=== PATIENT | female | born 1950 | race Caucasian/White ===

== ENCOUNTER → 2019-09-16 12:52 | Outpatient (BNVA) | payer MEDICARE, SELFPAY | PROVIDERS: Family Provider Family Medicine; PCP Family Medicine; Visit Provider Internal Medicine Rheumatology | DX: M05.79 Rheumatoid arthritis with rheumatoid factor of multiple sites without organ or systems involvement (principal); Z79.899 Other long term (current) drug therapy; Z11.1 Encounter for screening for respiratory tuberculosis | CPT/HCPCS: 36415; 86480 ==

== ENCOUNTER → 2020-01-07 15:25 | Outpatient (BNVA) | payer MEDICARE, SELFPAY | PROVIDERS: Family Provider Family Medicine; PCP Family Medicine; Visit Provider Internal Medicine | DX: M06.9 Rheumatoid arthritis, unspecified (principal); Z79.899 Other long term (current) drug therapy | CPT/HCPCS: 36415; 80053; 85025; 85651; 86140; 99213 ==

== ENCOUNTER 2020-05-20 13:25 | Outpatient (CLI) | payer MEDICARE, SELFPAY ==
--- NOTE | 2020-05-20 15:33 | ONC CON_ITS ---
Dr. Lyons New Patient Note Patient: Zulay Cedillo Unit #: [id number]: 1950 Dicatated By: Aranza Lyons M.D.Date of Visit: May 20, 2020 Onc MED New Patient/Consult Referring Physician: Dr. Michaela Cagle M.D. History of Present Illness: Ms. 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 Subsequently patient was referred to Dr. Cagle, and on April 27, 2020 patient underwent right breast lumpectomy with right axillary lymph node dissection and final pathology report confirmed grade 3, poorly differentiated invasive ductal carcinoma with clear surgical margins and no lymphovascular invasion, invasive component was 3.3 x 3.1 x 2.8 cm, pT2. and 0 out of 22 lymph nodes showed metastatic disease. p N0. Port-A-Cath was placed in left chest wall in anticipation of adjuvant chemotherapy Chest x-ray done prior to lumpectomy was unremarkable echocardiogram done on April 21, 2020 showed no abnormality ejection fraction 53%. Patient denies smoking or alcohol use. Patient denies any bony pain but she has history of rheumatoid arthritis with bilateral hand deformities and her past medical history also significant for hypothyroidism, hypertension, type 2 diabetes mellitus, hyperlipidemia and atrial fibrillation for which she is on Eliquis Patient denies any fever chills denies any nausea or vomiting any diarrhea or constipation her right breast/axillary surgical scar with good healing. Past Medical History: Ms. Cedillo's medical history consists of anxiety, atrial fibrillation, depression, hyperlipidemia, hypertension, hypothyroidism, rheumatoid arthritis, and type II diabetes. Past Surgical History: Ms. Cedillo's surgical/procedural history consists of breast biopsy, hysterectomy/bilateral salpingectomy-oophorectomy, mastectomy - partial right, and tubal ligation. Medications: Eliquis 1 Tablet (of 5 mg) Oral b.i.d., Euthyrox 1 Tablet (of 100 mcg) Oral daily, Gabapentin 1 Capsule (of 100 mg) Oral daily, Lisinopril 1 Tablet (of 20 mg) Oral daily, Lovastatin 1 Tablet (of 20 mg) Oral daily, metFORMIN HCl 1 Tablet (of 500 mg) Oral b.i.d., Metoprolol Tartrate 1 Tablet (of 50 mg) Oral b.i.d., predniSONE 1 Tablet (of 5 mg) Oral daily, Rinvoq 1 Tablet (of 15 mg) Tablet SR 24 HR Oral daily, Sertraline HCl 1 Tablet (of 100 mg) Oral daily, traMADol HCl 1 Tablet (of 50 mg) Oral PRN Allergies: No Known Allergies. Social History: Ms. Cedillo is . Ms. Cedillo has never smoked. She has no history of drinking. Family History: Ms. Cedillo's mother at age 84. Ms. Cedillo's father at age 77. pt states she is unsure of the cause of her parents . Review Of Symptoms: Constitutional - Appetite is good and weight is stable. No fever, night sweats, or hot flashes. Energy level is fair, ENMT - Positive for sinus congestion/drainage. No mouth sores. No sore throat or difficulty swallowing, Hematologic/Lymphatic - Positive for easy bruising and bleeding, Respiratory - No shortness of breath. No cough. No pleuritic pain or hemoptysis, Cardiovascular - No angina pain. No palpitations, Gastrointestinal - No nausea or vomiting. No heartburn or acid reflux. No diarrhea or constipation. No blood in the stool or black stools, Genitourinary (F) - No dysuria or hematuria. No urinary frequency. No urgency or incontinence, Musculoskeletal - Positive for joint pain, Neurologic - No headache or dizziness. No numbness or tingling. No other focal neurologic symptoms, Psychiatric - No anxiety or depression. No insomnia. Vital Signs: Performed on May 20, 2020 14:31: 0, 35.41 (HIGH), 1.84 sq.m, 61.00 in, 96 %, 66 /min, 16 /min, 145/80 mm(hg) (HIGH), 97.9 F (LOW), and 187.4 lbs (HIGH). Performance Status: 0 - Fully active, able to carry on all predisease activities without restrictions. (ECOG) Physical Examination: ENMT - No mouth sores, no thrush, no jaundice, Respiratory - Lungs are clear to auscultation, Cardiovascular - Irregular rate and rhythm, Abdomen - Soft, bowel sounds present, Extremities - No visible edema, bilateral hand deformities due to rheumatoid arthritis. Lab/Imaging: Most recent lab results are not available for this patient. Impression: Poorly differentiated invasive ductal carcinoma grade 3, triple negative status post right lumpectomy and axillary dissection done on April 27, 2020, final pathology report confirmed grade 3, poorly differentiated invasive ductal carcinoma, ER negative IL negative HER-2/miles negative, invasive component 3.3 x 3.1 x 2.8 cm, with clear surgical margin, no lymphovascular invasion, pT2 0 out of 22 lymph nodes showed metastatic disease, pN 0 Stage IIb, (grade 3, triple negative T2 ,N0) Atrial fibrillation, on Eliquis Type 2 diabetes mellitus Rheumatoid arthritis with deformity of bilateral hands Hypothyroidism, status post thyroid surgery Hypertension Plan: Discussed with patient regarding her disease status and treatment options, patient has node negative, triple negative, poorly differentiated, grade 3, invasive ductal carcinoma involving right breast, status post lumpectomy with clear surgical margins, no lymphovascular involvement. Stage IIb disease. As per NCCN guidelines, patient is a candidate for adjuvant chemotherapy, considering her age and comorbid condition and ejection fraction around 53%, we would consider adjuvant chemotherapy with Cytoxan 60 mg/m??? and docetaxel 75 mg/m??? every 3 weeks x4 with Neulasta support to prevent chemotherapy-induced neutropenia/leukopenia and to maintain chemotherapy schedule once patient completed chemotherapy, will refer her to radiation oncology for postlumpectomy radiation therapy. All the side effects possible benefits associated with chemotherapy including but not limited to bone marrow suppression, nausea vomiting, hair loss, hyperglycemia especially with steroids were mentioned further teaching will done by chemotherapy nurse, will obtain approval from her insurance prior to the treatment, patient already has Port-A-Cath placed in her left chest wall. We will see her back 1 week after chemotherapy is initiated with CBC CMP. Signed By: Aranza Lyons M.D. <<Signature on File>>
== END 2020-05-20 13:26 | disposition home or self-care (01) ==
LOC: ONCMED 13:27
PROVIDERS: Family Provider Family Medicine; PCP Family Medicine; Visit Provider Internal Medicine Medical Oncology
DX: C50.911 Malignant neoplasm of unspecified site of right female breast (principal); Z17.1 Estrogen receptor negative status [ER-]; I48.91 Unspecified atrial fibrillation; Z79.01 Long term (current) use of anticoagulants; E11.9 Type 2 diabetes mellitus without complications; M06.9 Rheumatoid arthritis, unspecified; E03.9 Hypothyroidism, unspecified; I10 Essential (primary) hypertension
CPT/HCPCS: 99203

== ENCOUNTER 2020-06-02 10:35 | Outpatient (CLI) | payer MEDICARE, SELFPAY ==
[2020-06-02 12:59] LABS: Basophils % 0.7 %; Eosinophils # 0.1 10^3/uL (0.0-0.8); Eosinophils % 1.6 %; Hematocrit 43.7 % (37.0-47.0); Hemoglobin 13.9 g/dL (11.5-15.3); Lymphocytes # 1.9 10^3/uL (0.8-4.8); Lymphocytes % 33.5 %; Mean Corpuscular HGB Conc 31.8 g/dL (30.0-36.0); Mean Corpuscular Hemoglobin 30.5 pg (28.0-34.0); Mean Platelet Volume 11.5 fL (7.4-10.4); Monocytes # 0.6 10^3/uL (0.2-0.9); Monocytes % 10.6 %; Neutrophils # 3.03 10^3/uL (1.8-7.7); Neutrophils % 53.2 %; Nucleated Red Blood Cells % 0 %; Platelet Count 222 10^3/cmm (130-400); Red Blood Count 4.55 10^6/uL (4.1-5.3); Red Cell Distribution Width 13.2 % (12.1-15.1); White Blood Count 5.7 10^3/uL (4.0-10.0)
[2020-06-02 13:32] LABS: Alanine Aminotransferase 14 U/L (0-33); Albumin Level 4.1 g/dL (3.5-5.2); Alkaline Phosphatase 129 IU/L (35-105); Anion Gap 16.3 (5-19); Aspartate Amino Transferase 19 U/L (0-32); Blood Urea Nitrogen 12 mg/dL (8-23); Calcium 9.1 mg/dL (8.5-10.5); Carbon Dioxide 24 mmol/L (22-29); Chloride 103 mmol/L (98-107); Globulin 3.3 g/dL (1.3-4.6); Glomerular Filtration Rate 123.1 mL/min (90-130); Glucose 143 mg/dL (65-115); Osmolality Calculated 290 mOsm/kg (285-295); Potassium 4.3 mmol/L (3.5-5.1); Sodium 139 mmol/L (136-145); Total Bilirubin 0.3 mg/dL (0.15-1.2); Total Protein 7.4 g/dL (6.6-8.7)
== END 2020-06-02 10:36 | disposition home or self-care (01) ==
LOC: ONCMED 12:36
PROVIDERS: Internal Medicine Medical Oncology; Family Provider Family Medicine; PCP Family Medicine; Visit Provider Internal Medicine Hematology & Oncology
DX: C50.211 Malignant neoplasm of upper-inner quadrant of right female breast (principal); Z17.1 Estrogen receptor negative status [ER-]
CPT/HCPCS: 36415; 80053; 85025

== ENCOUNTER 2020-06-03 05:42 | Outpatient (CLI) | payer MEDICARE, SELFPAY ==
[2020-06-03] MEDS: famotidine 20 mg/2 mL INJ IVP (11:13)
[2020-06-03] MEDS: sodium chloride 0.9% 250 ML 999 ML IV (11:13)
[2020-06-03] MEDS: palonosetron 0.25 mg/5 mL SDV IV (11:17)
[2020-06-03] MEDS: sodium chloride 0.9% (100 ml) 100 ML 400 ML (11:40)
[2020-06-03] MEDS: diphenhydrAMINE 50 mg/mL SDV 1mL 25 MG IV (11:40)
[2020-06-03] MEDS: pegfilgrastim 6 mg/0.6 mL Kit (onpro) SUBCUT (14:30)
--- NOTE | 2020-06-07 09:21 | ONC FU_ITS ---
[facility] Patient Note Patient: Zulay Cedillo Unit #: [id number]: 1950 Dictated By: SHAHEEN Kenny-KELDate of Visit: Jun 03, 2020 Onc MED Follow-Up/Prog Note Chief Complaint: Right breast cancer History of Present Illness: Ms. Cedillo is a 69-year-old female with a history of abnormal mammogram. She underwent needle core biopsy of a right breast mass on April 08, 2020. The pathology showed poorly differentiated invasive ductal carcinoma, grade 3, prognostic profile???confirmed triple negative disease as ER/CA was 0% and HER-2/miles negative. Subsequently, Ms Cedillo was referred to Dr. Cagle. On April 27, 2020, Ms Cedillo underwent right breast lumpectomy with right axillary lymph node dissection. The final pathology report confirmed grade 3, poorly differentiated invasive ductal carcinoma with clear surgical margins and no lymphovascular invasion, invasive component was 3.3 x 3.1 x 2.8 cm, pT2. and 0 out of 22 lymph nodes showed metastatic disease. p N0. Port-A-Cath was placed in left chest wall in anticipation of adjuvant chemotherapy. Chest x-ray done prior to lumpectomy was unremarkable and an echocardiogram done on April 21, 2020 showed no abnormality and an ejection fraction 53%. Patient denies smoking or alcohol use. Patient denies any bony pain but she has history of rheumatoid arthritis with bilateral hand deformities and her past medical history also significant for hypothyroidism, hypertension, type 2 diabetes mellitus, hyperlipidemia and atrial fibrillation for which she is on Eliquis Ms Cedillo was referred to Dr Lyons for further recommendations for treatment of her breast cancer. She has been offered treatment with cyclophosphamide docetaxel with growth factor support. Ms Cedillo has node negative, triple negative, poorly differentiated, grade 3, invasive ductal carcinoma involving right breast, status post lumpectomy with clear surgical margins, no lymphovascular involvement. Stage IIb disease. As per NCCN guidelines, she is a candidate for adjuvant chemotherapy, considering her age and comorbid condition and ejection fraction around 53%, we would consider adjuvant chemotherapy with Cytoxan 60 mg/m??? and docetaxel 75 mg/m??? every 3 weeks x4 with Neulasta support. When she has completed the chemotherapy, she will be referred to radiation oncology for post lumpectomy radiation. Mrs. Cedillo is here today for follow-up. She is due for her first cycle of cyclophosphamide docetaxel. She states she did take her premeds. She states overall she feels good. She has no new concerns today. She feels her Port-A-Cath has healed well. Dr. Cagle did not start this. 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 She denies any fever or chills. She denies any known Covid exposure, symptoms or pending test. She denies any shortness of breath orthopnea. She denies chest pain, palpitations and lower extremity edema. She denies any nausea or vomiting. She denies any diarrhea or constipation. She states overall she feels pretty good but is anxious about the chemotherapy today. Her ECOG is 0. Past Medical History: Anxiety Atrial fibrillation Depression Hyperlipidemia Hypertension Hypothyroidism Rheumatoid arthritis Type II diabetes Past Surgical History: Breast biopsy Hysterectomy/bilateral salpingectomy-oophorectomy Mastectomy - partial right Tubal ligation Allergies: No Known Allergies. Medications: Eliquis 1 Tablet (of 5 mg) Oral b.i.d. Euthyrox 1 Tablet (of 100 mcg) Oral daily Gabapentin 1 Capsule (of 100 mg) Oral daily Lisinopril 1 Tablet (of 20 mg) Oral daily Lovastatin 1 Tablet (of 20 mg) Oral daily metFORMIN HCl 1 Tablet (of 500 mg) Oral b.i.d. Metoprolol Tartrate 1 Tablet (of 50 mg) Oral b.i.d. predniSONE 1 Tablet (of 5 mg) Oral daily Rinvoq 1 Tablet (of 15 mg) Tablet SR 24 HR Oral daily Sertraline HCl 1 Tablet (of 100 mg) Oral daily traMADol HCl 1 Tablet (of 50 mg) Oral PRN Family History: Ms. Cedillo's mother at age 84. Ms. Cedillo's father at age 77. pt states she is unsure of the cause of her parents . Social History: Ms. Cedillo is . Ms. Cedillo has never smoked. She has no history of drinking. Review Of Symptoms: Constitutional Denies fevers, chills, night sweats, excessive fatigue or weight loss. Allergic/Immunologic No reactions. Eyes Denies significant visual changes. No diplopia. No amaurosis. ENMT Denies changes in hearing, sore throat, mouth sores, difficulty or changes in swallowing ability, and/or sinus drainage. Hematologic/Lymphatic Denies easy bruising or bleeding. The patient denies any tender or palpable lymph nodes. Breasts no new concerns Respiratory Denies dyspnea on exertion, chest pain, cough or hemoptysis. Denies orthopnea. Cardiovascular Denies anginal chest pain, palpitations or orthopnea. Gastrointestinal Denies nausea, vomiting, diarrhea, GI bleeding, or constipation. Denies change in bowel habits and/or stool color, no heartburn or early satiety. Genitourinary (F) No hematuria, hesitancy, incontinence, vaginal bleeding, discharge or other problems with urination. Musculoskeletal Denies joint pain, swelling or redness. No decreased range of motion. Integumentary Denies chronic rashes, inflammation, ulcerations or skin changes. Neurologic Denies headache, blurred vision, and no areas of focal weakness or numbness. Normal gait. No sensory problems. Psychiatric Denies insomnia, depression, geoffrey or mood swings. Vital Signs: Performed on Jun 03, 2020 09:47 Height - 61.00 in Weight - 190.2 lbs (HIGH) BSA - 1.85 sq.m BMI - 35.94 (HIGH) Temperature - 98.2 F (LOW) Pulse - 89 /min Respiration - 20 /min BP - 163/89 mm(hg) (HIGH) O2 Sat - 95 % (LOW) Pain - 0,0 - Fully active, able to carry on all predisease activities without restrictions. (ECOG) Physical Examination: Constitutional Alert, oriented, no acute distress. Skin pink, warm and dry. Head Normocephalic; atraumatic. Eyes Conjunctivae and sclerae are clear and without icterus. Pupils are reactive and equal. Neck Supple without masses or thyromegaly. No jugular venous distension. Hematologic/Lymphatic No petechiae or purpura. No tender or palpable lymph nodes in the cervical or supraclavicular areas. Respiratory Lungs are clear to auscultation without rhonchi or wheezing. Cardiovascular Regular rate and rhythm of heart without murmurs,clicks, gallops or rubs. Chest Chest is symmetric without chest wall deformities. Left port site has healed well. Breasts Abdomen Non-tender, non-distended, no masses or ascites. Good bowel sounds noted in all quads. No guarding or rebound tenderness. No pulsatile masses. Back/Spine Non-tender to palpation. Extremities No visible deformities, no cyanosis, clubbing or edema. Musculoskeletal No tenderness or swelling, normal range of motion without obvious weakness. Integumentary No rashes or lesions. Neurologic No sensory or motor deficits, normal cerebellar function, normal gait. Psychiatric Alert and oriented times three. Coherent speech. Verbalizes understanding of our discussions today. Laboratory:Test performed on Jun 02, 2020 10:35 Sodium 139 mmol/L Potassium 4.3 mmol/L Chloride 103 mmol/L CO2 24 mmol/L Anion Gap 16.3 BUN 12 mg/dL Creatinine 0.5 mg/dL Cr Clearance (Est) 146.5100 mL/min eGFR 123.1 mL/min Glucose 143 mg/dL Osmolality - Calculated 290 mOsm/kg Calcium 9.1 mg/dL Protein, Total 7.4 g/dL Albumin 4.1 g/dL Globulin 3.3 g/dL Bilirubin, Total 0.3 mg/dL ALT (SGPT) 14 U/L AST (SGOT) 19 U/L Alkaline Phosphatase 129 IU/L WBC 5.7 10 3/uL RBC 4.55 10 6/uL HGB 13.9 g/dL HCT 43.7 % MCV 96.0 fL MCH 30.5 pg MCHC 31.8 g/dL RDW 13.2 % Platelet Count 222 10 3/cmm MPV 11.5 fL Neutrophils 3.03 10 3/uL Lymphocytes 1.9 10 3/uL Monocytes 0.6 10 3/uL Eosinophils 0.1 10 3/uL Basophils 0.0 10 3/uL Neutrophil % 53.2 % Lymphocyte % 33.5 % Monocyte % 10.6 % Eosinophil % 1.6 % Basophils % 0.7 % NRBC % 0 % Impression: Poorly differentiated invasive ductal carcinoma grade 3, triple negative status post right lumpectomy and axillary dissection done on April 27, 2020, final pathology report confirmed grade 3, poorly differentiated invasive ductal carcinoma, ER negative CA negative HER-2/miles negative, invasive component 3.3 x 3.1 x 2.8 cm, with clear surgical margin, no lymphovascular invasion, pT2 0 out of 22 lymph nodes showed metastatic disease, pN 0 Stage IIb, (grade 3, triple negative T2 ,N0) Atrial fibrillation, on Eliquis Type 2 diabetes mellitus Rheumatoid arthritis with deformity of bilateral hands Hypothyroidism, status post thyroid surgery Hypertension Dr. Lyosn has offered Mrs. Cedillo adjuvant chemotherapy with cyclophosphamide docetaxel. She also had Neulasta support to prevent chemotherapy-induced neutropenia. She will start her first cycle today. We will plan for 4 cycles of the cyclophosphamide docetaxel. When she completes the adjuvant chemotherapy she will be referred to radiation oncology for postlumpectomy radiation. Plan: 1. Proceed with cycle 1 day 1 cyclophosphamide docetaxel. 2. Steroid compliance confirmed. 3. Aggressive antiemetics due to high risk regimen. 4. Labs from 06/02/2020 were reviewed in detail and discussed with Mrs. Cedillo and a copy was given to her. WBC 5.7, hemoglobin 13.9 platelets 222,000, ANC is 3000 potassium 4.3 creatinine 0.5 LFTs are normal alk phos is 129. 5. Mrs. Cedillo will have interim CBC. This may be drawn at [facility] through her port or venipuncture whichever she prefers. 6. We will plan to see her back here in 3 weeks with CBC CMP for consideration of cycle 2 chemotherapy. 7. Mrs. Cedillo was instructed to contact us in interim should questions or problems arise. 8. The patient was informed of chemotherapy plan and specific drugs were discussed. We also discussed how chemotherapy works and identified common side effects including alopecia; myelosuppression-including neutropenia, anemia, thrombocytopenia; peripheral neuropathy; fatigue; nausea; diarrhea; constipation; bleeding or bruising; skin changes; mouth sores; drug hypersensitivity/allergic reactions or anaphylaxis and extravasation. They have also been informed how to contact the clinic with side effects or symptoms, including but not limited to fever greater than 100.4???, chills, sore throat, bleeding or bruising that is not explained or mouth sores, cough, nasal discharge, diarrhea, constipation, nausea and/or vomiting not relieved with medications on hand at home, as well as any other concern or question they may have. Our hours are 8:00 a.m. to 4:30 p.m. on Sunday through and 8-12:00 on Sunday. However, someone is instrument/control technician 24 hours per day and they have been advised to contact the [facility] at if it is after hours. We have also discussed potential long-term side effects of chemotherapy including secondary cancers, infertility, pulmonary complications, cardiac complications, and again peripheral neuropathy. We have discussed that they certainly need to let us know before taking any antioxidants or herbal or further dietary supplements, as we are unsure of how these agents react with chemotherapy and we request that they avoid these products for now. They were informed that it is okay to take multivitamins at normal doses. They verbally state that they understand to take all medications as directed by their healthcare provider unless otherwise indicated. They also verbalized understanding to leave the pressure dressing on the intravenous administration site for at least two hours after treatment. Instructions for oral care with baking soda and salt water rinses as well as a guide for use of [id number] medication were provided with the treatment plan. They have been given a written patient treatment plan, of which a copy is in the chart, as well as specific drug information. They have no questions and verbalized understanding and are willing to proceed with chemotherapy at this time. The majority of this visit (greater than 45 minutes) was spent in face to face communication with this patient in regards to the plan of care, side effect identification and management. Signed By: JAK Kenny, DEN Lyons M.D. <<Signature on File>>
== END 2020-06-03 05:43 | disposition home or self-care (01) ==
PROVIDERS: Family Provider Family Medicine; PCP Family Medicine; Visit Provider Nurse Practitioner
DX: Z51.12 Encounter for antineoplastic immunotherapy (principal); Z51.11 Encounter for antineoplastic chemotherapy; C50.211 Malignant neoplasm of upper-inner quadrant of right female breast; Z17.1 Estrogen receptor negative status [ER-]; I48.91 Unspecified atrial fibrillation; E11.9 Type 2 diabetes mellitus without complications; M06.9 Rheumatoid arthritis, unspecified; M21.832 Other specified acquired deformities of left forearm; M21.831 Other specified acquired deformities of right forearm; E03.9 Hypothyroidism, unspecified; I10 Essential (primary) hypertension; Z79.01 Long term (current) use of anticoagulants
CPT/HCPCS: 96367; 96372; 96375; 96413; 96417; 99215; J1100; J1200; J2469; J2505; J3490; J7040; J7050; J9070; J9171

== ENCOUNTER 2020-06-24 10:22 | Outpatient (CLI) | payer MEDICARE, SELFPAY ==
[2020-06-24] MEDS: sodium chloride 0.9% 250 ML 75 ML IV (11:30)
[2020-06-24] MEDS: famotidine 20 mg/2 mL INJ IVP (11:30)
[2020-06-24] MEDS: diphenhydrAMINE 50 mg/mL SDV 1mL 25 MG IV (11:35)
[2020-06-24] MEDS: palonosetron 0.25 mg/5 mL SDV IV (11:41)
[2020-06-24 12:06] LABS: Alanine Aminotransferase 13 U/L (0-33); Albumin Level 4.1 g/dL (3.5-5.2); Alkaline Phosphatase 148 IU/L (35-105); Anion Gap 15.3 (5-19); Aspartate Amino Transferase 14 U/L (0-32); Blood Urea Nitrogen 12 mg/dL (8-23); Calcium 9.2 mg/dL (8.5-10.5); Carbon Dioxide 25 mmol/L (22-29); Chloride 99 mmol/L (98-107); Globulin 3.1 g/dL (1.3-4.6); Glomerular Filtration Rate 123.1 mL/min (90-130); Glucose 248 mg/dL (65-115); Osmolality Calculated 288 mOsm/kg (285-295); Potassium 4.3 mmol/L (3.5-5.1); Sodium 135 mmol/L (136-145); Total Bilirubin 0.4 mg/dL (0.15-1.2); Total Protein 7.2 g/dL (6.6-8.7)
[2020-06-24] MEDS: pegfilgrastim 6 mg/0.6 mL Kit (onpro) SUBCUT (14:15)
--- NOTE | 2020-06-28 21:26 | ONC FU_ITS ---
[facility] Patient Note Patient: Zulay Cedillo Unit #: [id number]: 1950 Dictated By: Kathy KennyDate of Visit: Jun 24, 2020 Onc MED Follow-Up/Prog Note Chief Complaint: Right breast cancer History of Present Illness: Ms. Cedillo is a 69-year-old female with a history of abnormal mammogram. She underwent needle core biopsy of a right breast mass on April 08, 2020. The pathology showed poorly differentiated invasive ductal carcinoma, grade 3, prognostic profile???confirmed triple negative disease as ER/ND was 0% and HER-2/miles negative. Subsequently, Ms Cedillo was referred to Dr. Cagle. On April 27, 2020, Ms Cedillo underwent right breast lumpectomy with right axillary lymph node dissection. The final pathology report confirmed grade 3, poorly differentiated invasive ductal carcinoma with clear surgical margins and no lymphovascular invasion, invasive component was 3.3 x 3.1 x 2.8 cm, pT2. and 0 out of 22 lymph nodes showed metastatic disease. p N0. Port-A-Cath was placed in left chest wall in anticipation of adjuvant chemotherapy. Chest x-ray done prior to lumpectomy was unremarkable and an echocardiogram done on April 21, 2020 showed no abnormality and an ejection fraction 53%. Patient denies smoking or alcohol use. Patient denies any bony pain but she has history of rheumatoid arthritis with bilateral hand deformities and her past medical history also significant for hypothyroidism, hypertension, type 2 diabetes mellitus, hyperlipidemia and atrial fibrillation for which she is on Eliquis Ms Cedillo was referred to Dr Lyons for further recommendations for treatment of her breast cancer. She has been offered treatment with cyclophosphamide docetaxel with growth factor support. Ms Cedillo has node negative, triple negative, poorly differentiated, grade 3, invasive ductal carcinoma involving right breast, status post lumpectomy with clear surgical margins, no lymphovascular involvement. Stage IIb disease. As per NCCN guidelines, she is a candidate for adjuvant chemotherapy, considering her age and comorbid condition and ejection fraction around 53%, we would consider adjuvant chemotherapy with Cytoxan 60 mg/m??? and docetaxel 75 mg/m??? every 3 weeks x 4 with Neulasta support. When she has completed the chemotherapy, she will be referred to radiation oncology for post lumpectomy radiation. Mrs. Cedillo is here today for follow-up. She is due for her cycle 2 of cyclophosphamide docetaxel. She states overall she is doing pretty good . She did have significant neutropenia with ANC of 200 on day 8 despite growth factor support with Neulasta on pro. Her counts have adequately recovered today to an ANC of 5500. She denies any fever or chills. She did take prophylactic antibiotics and tolerated this well. She denies any nausea or vomiting. She states she does have fatigue with activity but recovers well with rest. She states her fatigue has improved at this point. She denies any diarrhea or constipation. She denies any neuropathy. She states her mouth is felt a little rough in the palate area but she denies any actual oral lesions. She denies any trouble swallowing. She states she had a little nausea but that went away with nausea meds at home. She denies any vomiting. She denies any urinary symptoms. Her ECOG is 1. Past Medical History: Anxiety Atrial fibrillation Depression Hyperlipidemia Hypertension Hypothyroidism Rheumatoid arthritis Type II diabetes Past Surgical History: Breast biopsy Hysterectomy/bilateral salpingectomy-oophorectomy Mastectomy - partial right Tubal ligation Allergies: No Known Allergies. Medications: Eliquis 1 Tablet (of 5 mg) Oral b.i.d. Euthyrox 1 Tablet (of 100 mcg) Oral daily Gabapentin 1 Capsule (of 100 mg) Oral daily Lisinopril 1 Tablet (of 20 mg) Oral daily Lovastatin 1 Tablet (of 20 mg) Oral daily metFORMIN HCl 1 Tablet (of 500 mg) Oral b.i.d. Metoprolol Tartrate 1 Tablet (of 50 mg) Oral b.i.d. predniSONE 1 Tablet (of 5 mg) Oral daily Rinvoq 1 Tablet (of 15 mg) Tablet SR 24 HR Oral daily Sertraline HCl 1 Tablet (of 100 mg) Oral daily traMADol HCl 1 Tablet (of 50 mg) Oral PRN Family History: Ms. Cedillo's mother at age 84. Ms. Cedillo's father at age 77. pt states she is unsure of the cause of her parents . Social History: Ms. Cedillo is . Ms. Cedillo has never smoked. She has no history of drinking. Review Of Symptoms: Constitutional Denies fevers, chills, night sweats, excessive fatigue or weight loss. She states she gets tired with activity. Allergic/Immunologic No reactions. Eyes Denies significant visual changes. No diplopia. No amaurosis. ENMT Denies changes in hearing, sore throat, mouth sores, difficulty or changes in swallowing ability, and/or sinus drainage. She states her mouth has been a little tender in the roof of her mouth. Hematologic/Lymphatic Denies easy bruising or bleeding. The patient denies any tender or palpable lymph nodes. Respiratory Denies dyspnea on exertion, chest pain, cough or hemoptysis. Denies orthopnea. Cardiovascular Denies anginal chest pain, palpitations or orthopnea. Gastrointestinal Denies nausea, vomiting, diarrhea, GI bleeding, or constipation. Denies change in bowel habits and/or stool color, no heartburn or early satiety. Genitourinary (F) No hematuria, hesitancy, incontinence, vaginal bleeding, discharge or other problems with urination. Musculoskeletal Denies joint pain, swelling or redness. No decreased range of motion. Integumentary Denies chronic rashes, inflammation, ulcerations or skin changes. Neurologic Denies headache, blurred vision, and no areas of focal weakness or numbness. Normal gait. No sensory problems. Psychiatric Denies insomnia, depression, geoffrey or mood swings. Vital Signs: Performed on Jun 24, 2020 14:15 Height - 61.00 in Temperature - 97.4 F (LOW) Pulse - 91 /min Respiration - 18 /min BP - 128/78 mm(hg) O2 Sat - 96 % Pain - 0 Fatigue - 0 Performed on Jun 24, 2020 10:56 Height - 61.00 in Weight - 187.2 lbs (LOW) BSA - 1.84 sq.m BMI - 35.37 (HIGH) Temperature - 98.5 F Pulse - 80 /min Respiration - 20 /min BP - 134/86 mm(hg) O2 Sat - 95 % (LOW) Pain - 2 Fatigue - 0,1 - No physically strenuous activity, but ambulatory and able to carry out light or sedentary work (e.g. office work, light house work). (ECOG) Physical Examination: Constitutional Alert, oriented, no acute distress. Skin pink, warm and dry. Head Normocephalic; atraumatic. Eyes Conjunctivae and sclerae are clear and without icterus. Pupils are reactive and equal. ENMT Her palate shows irritation but no actual lesions. She is encouraged to use baking soda salt water rinses. Neck Supple without masses or thyromegaly. No jugular venous distension. Hematologic/Lymphatic No petechiae or purpura. No tender or palpable lymph nodes in the cervical or supraclavicular areas. Respiratory Lungs are clear to auscultation without rhonchi or wheezing. Cardiovascular Regular rate and rhythm of heart without murmurs,clicks, gallops or rubs. Chest Chest is symmetric without chest wall deformities. Left port site has healed well. Abdomen Non-tender, non-distended, no masses or ascites. Good bowel sounds noted in all quads. No guarding or rebound tenderness. No pulsatile masses. Back/Spine Non-tender to palpation. Extremities No visible deformities, no cyanosis, clubbing or edema. Musculoskeletal No tenderness or swelling, normal range of motion without obvious weakness. Integumentary No rashes or lesions. Neurologic No sensory or motor deficits, normal cerebellar function, normal gait. Psychiatric Alert and oriented times three. Coherent speech. Verbalizes understanding of our discussions today. Laboratory:Test performed on Jun 24, 2020 11:20 Sodium 135 mmol/L Potassium 4.3 mmol/L Chloride 99 mmol/L CO2 25 mmol/L Anion Gap 15.3 BUN 12 mg/dL Creatinine 0.5 mg/dL Cr Clearance (Est) 146.5100 mL/min eGFR 123.1 mL/min Glucose 248 mg/dL Osmolality - Calculated 288 mOsm/kg Calcium 9.2 mg/dL Protein, Total 7.2 g/dL Albumin 4.1 g/dL Globulin 3.1 g/dL Bilirubin, Total 0.4 mg/dL ALT (SGPT) 13 U/L AST (SGOT) 14 U/L Alkaline Phosphatase 148 IU/L Test performed on Jun 24, 2020 10:42 WBC 7.7 10^9/L RBC 4.16 10^12/L HGB 12.8 g/dL HCT 38.9 % MCV 93.5 fl MCH 30.8 pg MCHC 33 g/dL RDW 13.9 % Platelet Count 391 10^9/L MPV 9.8 fL Neutrophils (Gran) 5.5 10^9/L Lymphocytes 1.5 10^9/L Monocytes 0.6 10^9/L Eosinophils 0.0 10^9/L Basophils 0.1 10^9/L Manual Lymphocytes 19.4 % Manual Monocytes 8.3 % Manual Eosinophils 0.3 % Manual Basophils 0.7 % Test performed on Jun 02, 2020 10:35 Neutrophil % 53.2 % Lymphocyte % 33.5 % Monocyte % 10.6 % Eosinophil % 1.6 % Basophils % 0.7 % NRBC % 0 % Impression: Poorly differentiated invasive ductal carcinoma grade 3, triple negative status post right lumpectomy and axillary dissection done on April 27, 2020, final pathology report confirmed grade 3, poorly differentiated invasive ductal carcinoma, ER negative ND negative HER-2/miles negative, invasive component 3.3 x 3.1 x 2.8 cm, with clear surgical margin, no lymphovascular invasion, pT2 0 out of 22 lymph nodes showed metastatic disease, pN 0 Stage IIb, (grade 3, triple negative T2 ,N0) Atrial fibrillation, on Eliquis Type 2 diabetes mellitus Rheumatoid arthritis with deformity of bilateral hands Hypothyroidism, status post thyroid surgery Hypertension Dr. Lyons has offered Mrs. Cedillo adjuvant chemotherapy with cyclophosphamide docetaxel. She also had Neulasta support to prevent chemotherapy-induced neutropenia. She started her first cycle on 06/03/2020. We will plan for 4 cycles of the cyclophosphamide docetaxel. When she completes the adjuvant chemotherapy she will be referred to radiation oncology for postlumpectomy radiation. Plan: PROBLEMS ADDRESSED TODAY A. STAGE IIB TRIPLE NEGATIVE POORLY DIFFERENTIATED INVASIVE DUCTAL CARCINOMA 1. Proceed with cycle 2 day 1 cyclophosphamide docetaxel. 2. Steroid compliance confirmed. 3. Aggressive antiemetics due to high risk regimen. 4. Labs from 06/24/2020 were reviewed in detail and discussed with Mrs. Cedillo and a copy was given to her. WBC 7.7, hemoglobin 12.8, platelets 391,000 ANC is 5500. Potassium 4.3 random glucose 248 steroid-induced creatinine 0.5 LFTs are normal alk phos is 148 presumably due to Neulasta on pro injection. 5. Mrs. Cedillo will have interim CBC. This may be drawn at [facility] through her port or venipuncture whichever she prefers. B. MOUTH IRRITATION RELATED TO CHEMOTHERAPY 1. Baking soda/salt water rinses up to 4 times daily as needed. 2. She is encouraged to contact us in interim if actual sores arise that we could start her with famciclovir or equivalent. C. FOLLOWUP PLAN 1. We will plan to see her back here in 3 weeks with CBC CMP for consideration of cycle 3 chemotherapy. 2. Mrs. Cedillo was instructed to contact us in interim should questions or problems arise. Addendum: Mrs. Cedillo is had significant activity induced fatigue and has had severe neutropenia after cycle 1. Due to the fatigue and the neutropenia she may not be able to work consistently and will just depend on her tolerance. Her neutropenia has resolved presently but is expected that will recur after each chemotherapy treatment. Signed By: Kathy Kenny-, AOCNP Aranza Lyons MD <<Signature on File>>
== END 2020-06-24 10:23 | disposition home or self-care (01) ==
LOC: ONCMED 10:25
PROVIDERS: PCP Family Medicine; Visit Provider Nurse Practitioner
DX: Z51.11 Encounter for antineoplastic chemotherapy (principal); C50.211 Malignant neoplasm of upper-inner quadrant of right female breast; Z17.1 Estrogen receptor negative status [ER-]; D70.1 Agranulocytosis secondary to cancer chemotherapy; T45.1X5A Adverse effect of antineoplastic and immunosuppressive drugs, initial encounter; R53.83 Other fatigue; Z79.899 Other long term (current) drug therapy; I48.91 Unspecified atrial fibrillation; E11.9 Type 2 diabetes mellitus without complications; M06.9 Rheumatoid arthritis, unspecified; E03.9 Hypothyroidism, unspecified; I10 Essential (primary) hypertension; Z79.01 Long term (current) use of anticoagulants; Z79.52 Long term (current) use of systemic steroids
CPT/HCPCS: 80053; 96367; 96372; 96375; 96377; 96413; 96417; 99215; J1100; J1200; J2469; J2505; J3490; J7040; J7050; J9070; J9171

== ENCOUNTER 2020-07-15 05:45 | Outpatient (CLI) | payer MEDICARE, SELFPAY ==
--- NOTE | 2020-07-15 09:21 | ONC FU_ITS ---
Dr. Lyons follow up note Patient: Zulay Cedillo Unit #: [id number]: 1950 Dicatated By: Aranza Lyons M.D.Date of Visit:Jul 15, 2020 Onc Med Follow-up/Prog Note History of Present Illness: Ms. Cedillo is a 69-year-old female with a history of abnormal mammogram. She underwent needle core biopsy of a right breast mass on April 08, 2020. The pathology showed poorly differentiated invasive ductal carcinoma, grade 3, prognostic profile???confirmed triple negative disease as ER/DE was 0% and HER-2/miles negative. Subsequently, Ms Cedillo was referred to Dr. Cagle. On April 27, 2020, Ms Cedillo underwent right breast lumpectomy with right axillary lymph node dissection. The final pathology report confirmed grade 3, poorly differentiated invasive ductal carcinoma with clear surgical margins and no lymphovascular invasion, invasive component was 3.3 x 3.1 x 2.8 cm, pT2. and 0 out of 22 lymph nodes showed metastatic disease. p N0. Port-A-Cath was placed in left chest wall in anticipation of adjuvant chemotherapy. Chest x-ray done prior to lumpectomy was unremarkable and an echocardiogram done on April 21, 2020 showed no abnormality and an ejection fraction 53%. Patient denies smoking or alcohol use. Patient denies any bony pain but she has history of rheumatoid arthritis with bilateral hand deformities and her past medical history also significant for hypothyroidism, hypertension, type 2 diabetes mellitus, hyperlipidemia and atrial fibrillation for which she is on Eliquis Ms Cedillo was referred to us for further recommendations for treatment of her breast cancer. She has been offered treatment with cyclophosphamide docetaxel with growth factor support. Ms Cedillo has node negative, triple negative, poorly differentiated, grade 3, invasive ductal carcinoma involving right breast, status post lumpectomy with clear surgical margins, no lymphovascular involvement. Stage IIIb disease. As per NCCN guidelines, she is a candidate for adjuvant chemotherapy, considering her age and comorbid condition and ejection fraction around 53%, we would consider adjuvant chemotherapy with Cytoxan 60 mg/m??? and docetaxel 75 mg/m??? every 3 weeks x 4 with Neulasta support. When she has completed the chemotherapy, she will be referred to radiation oncology for post lumpectomy radiation. Came for follow-up, denies any specific complaints, no fever chills, no nausea or vomiting, no diarrhea or constipation, no mouth sores, no abdominal pain, no peripheral neuropathy, tolerating adjuvant chemotherapy with Cytoxan/docetaxel well Medications: Eliquis 1 Tablet (of 5 mg) Oral b.i.d., Euthyrox 1 Tablet (of 100 mcg) Oral daily, Gabapentin 1 Capsule (of 100 mg) Oral daily, Lisinopril 1 Tablet (of 20 mg) Oral daily, Lovastatin 1 Tablet (of 20 mg) Oral daily, metFORMIN HCl 1 Tablet (of 500 mg) Oral b.i.d., Metoprolol Tartrate 1 Tablet (of 50 mg) Oral b.i.d., predniSONE 1 Tablet (of 5 mg) Oral daily, Rinvoq 1 Tablet (of 15 mg) Tablet SR 24 HR Oral daily, Sertraline HCl 1 Tablet (of 100 mg) Oral daily, traMADol HCl 1 Tablet (of 50 mg) Oral PRN Allergies: No Known Allergies. Review of Systems: Review of Systems is not available for this patient. Vital Signs: Performed on Jul 15, 2020 08:48 Height - 61.00 in Weight - 189.4 lbs (HIGH) BSA - 1.85 sq.m BMI - 35.79 (HIGH) Temperature - 96.0 F (LOW) Pulse - 92 /min Respiration - 16 /min BP - 163/81 mm(hg) (HIGH) O2 Sat - 96 % Pain - 0 Performance Status: 1 - No physically strenuous activity, but ambulatory and able to carry out light or sedentary work (e.g. office work, light house work). (ECOG) Physical Examination: Respiratory - Lungs are clear to auscultation, Cardiovascular - Regular rate and rhythm of heart, Gastrointestinal - Soft, bowel sounds present, Extremities - No visible edema or rash. Lab/Imaging: Test performed on Jul 14, 2020 08:03 Glucose 166 mg/dL BUN 16 mg/dL Creatinine 0.6 mg/dL Cr Clearance (Est) 122.10 mL/min Sodium 139 mmol/L Potassium 4.2 mmol/L Chloride 102 mmol/L CO2 29 mmol/L Calcium 9.3 mg/dL Protein, Total 7.9 g/dL Albumin 4.1 g/dL Bilirubin, Total 0.4 mg/dL Alkaline Phosphatase 116 IU/L AST (SGOT) 20 IU/L ALT (SGPT) 13 IU/L WBC 8.6 10^9/L RBC 4.03 10^12/L HGB 12. g/dL HCT 38.9 % MCV 96.5 fl MCHC 32 g/dL RDW 14.8 % Platelet Count 332 10^9/L Neutrophils (Gran) 6.3 10^9/L Lymphocytes 1.3 10^9/L Monocytes 0.9 10^9/L Eosinophils 0 10^9/L Basophils 0.1 10^9/L Test performed on Jul 07, 2020 12:01 MCH 30.8 pg MPV 10.5 fL Manual Lymphocytes 16.6 % Manual Monocytes 5.4 % Manual Eosinophils 0.0 % Manual Basophils 0.5 % Test performed on Jun 24, 2020 11:20 Anion Gap 15.3 eGFR 123.1 mL/min Osmolality - Calculated 288 mOsm/kg Globulin 3.1 g/dL Test performed on Jun 02, 2020 10:35 Neutrophil % 53.2 % Lymphocyte % 33.5 % Monocyte % 10.6 % Eosinophil % 1.6 % Basophils % 0.7 % NRBC % 0 % Impression: Poorly differentiated invasive ductal carcinoma grade 3, triple negative status post right lumpectomy and axillary dissection done on April 27, 2020, final pathology report confirmed grade 3, poorly differentiated invasive ductal carcinoma, ER negative DE negative HER-2/miles negative, invasive component 3.3 x 3.1 x 2.8 cm, with clear surgical margin, no lymphovascular invasion, pT2 0 out of 22 lymph nodes showed metastatic disease, pN 0 Stage IIIb, (grade 3, triple negative T2 ,N0) Atrial fibrillation, on Eliquis Type 2 diabetes mellitus Rheumatoid arthritis with deformity of bilateral hands Hypothyroidism, status post thyroid surgery Hypertension Dr. Lyons has offered Mrs. Cedillo adjuvant chemotherapy with cyclophosphamide docetaxel. She also had Neulasta support to prevent chemotherapy-induced neutropenia. She started her first cycle on 06/03/2020. We will plan for 4 cycles of the cyclophosphamide docetaxel. When she completes the adjuvant chemotherapy she will be referred to radiation oncology for postlumpectomy radiation. Plan: Discussed with patient regarding her labs white blood count 8.6 hemoglobin 12 hematocrit 38.9 platelets 332,000 CMP within normal limits Clinically, patient is doing well with no new signs symptoms, tolerating adjuvant chemotherapy with Cytoxan/Taxotere well but with expected side effects. We will proceed with cycle #3/4 with Cytoxan/Taxotere with Neulasta support to prevent chemotherapy-induced neutropenia/leukopenia, today and then she will return to clinic in 1 week with CBC CMP. Signed By: Aranza Lyons M.D. <<Signature on File>>
[2020-07-15] MEDS: famotidine 20 mg/2 mL INJ IVP (09:39)
[2020-07-15] MEDS: sodium chloride 0.9% 500 ML 75 ML IV (09:39)
[2020-07-15] MEDS: diphenhydrAMINE 50 mg/mL SDV 1mL 25 MG IV (09:40)
[2020-07-15] MEDS: palonosetron 0.25 mg/5 mL SDV IV (09:42)
[2020-07-15] MEDS: pegfilgrastim 6 mg/0.6 mL Kit (onpro) SUBCUT (12:20)
== END 2020-07-15 05:46 | disposition home or self-care (01) ==
LOC: ONCMED 05:46
PROVIDERS: PCP Family Medicine; Visit Provider Internal Medicine Hematology & Oncology
DX: Z51.11 Encounter for antineoplastic chemotherapy (principal); C50.211 Malignant neoplasm of upper-inner quadrant of right female breast; Z17.1 Estrogen receptor negative status [ER-]; Z76.89 Persons encountering health services in other specified circumstances; I48.91 Unspecified atrial fibrillation; E11.9 Type 2 diabetes mellitus without complications; M06.9 Rheumatoid arthritis, unspecified; E89.0 Postprocedural hypothyroidism; I10 Essential (primary) hypertension; Z79.899 Other long term (current) drug therapy; Z79.01 Long term (current) use of anticoagulants
CPT/HCPCS: 96367; 96372; 96375; 96413; 96417; 99214; J1100; J1200; J2469; J2505; J3490; J7040; J7050; J9070; J9171

== ENCOUNTER 2020-07-22 06:08 | Outpatient (CLI) | payer MEDICARE, SELFPAY ==
[2020-07-22 11:17] LABS: Hematocrit 37.1 % (37.0-47.0); Hemoglobin 11.7 g/dL (11.5-15.3); Mean Corpuscular HGB Conc 31.5 g/dL (30.0-36.0); Mean Corpuscular Hemoglobin 29.8 pg (28.0-34.0); Mean Corpuscular Volume 94.6 fL (81-99); Mean Platelet Volume 11.6 fL (7.4-10.4); Platelet Count 177 10^3/cmm (130-400); Red Blood Count 3.92 10^6/uL (4.1-5.3); Red Cell Distribution Width 15.2 % (12.1-15.1); White Blood Count 10.4 10^3/uL (4.0-10.0)
[2020-07-22 11:36] LABS: Alanine Aminotransferase 14 U/L (0-33); Albumin Level 3.6 g/dL (3.5-5.2); Alkaline Phosphatase 135 IU/L (35-105); Anion Gap 14.9 (5-19); Aspartate Amino Transferase 14 U/L (0-32); Blood Urea Nitrogen 7 mg/dL (8-23); Calcium 9.2 mg/dL (8.5-10.5); Carbon Dioxide 25 mmol/L (22-29); Chloride 98 mmol/L (98-107); Glomerular Filtration Rate 123.1 mL/min (90-130); Glucose 196 mg/dL (65-115); Osmolality Calculated 281 mOsm/kg (285-295); Potassium 3.9 mmol/L (3.5-5.1); Sodium 134 mmol/L (136-145); Total Bilirubin 0.3 mg/dL (0.15-1.2); Total Protein 6.6 g/dL (6.6-8.7)
[2020-07-22 11:37] LABS: Slide Review Slide Review Perform
[2020-07-22 11:38] LABS: Absolute Neutrophil 7.1 10^3/cmm (1.4-6.5); Absolute Segmented Neutrophil 5.5 10/cmm (1.6-7.1); Band Neutrophils Absolute 1.6 10^3/cmm (0.0-1.2); Eosinophils 0 %; Lymphocytes 17 %; Monocytes Absolute 0.8 10^3/cmm (0.1-0.6); Platelet Estimate Normal (Normal); Segmented Neutrophils 53 %; Total Cells Counted 100 (0-100)
--- NOTE | 2020-07-26 20:16 | ONC FU_ITS ---
[facility] Patient Note Patient: Zulay Cedillo Unit #: [id number]: [id number] Dictated By: Kathy KennyDate of Visit: Jul 22, 2020 Onc MED Follow-Up/Prog Note Chief Complaint: Right breast cancer History of Present Illness: Ms. Cedillo is a 69-year-old female with a history of abnormal mammogram. She underwent needle core biopsy of a right breast mass on April 08, 2020. The pathology showed poorly differentiated invasive ductal carcinoma, grade 3, prognostic profile???confirmed triple negative disease as ER/ND was 0% and HER-2/miles negative. Subsequently, Ms Cedillo was referred to Dr. Cagle. On April 27, 2020, Ms Cedillo underwent right breast lumpectomy with right axillary lymph node dissection. The final pathology report confirmed grade 3, poorly differentiated invasive ductal carcinoma with clear surgical margins and no lymphovascular invasion, invasive component was 3.3 x 3.1 x 2.8 cm, pT2. and 0 out of 22 lymph nodes showed metastatic disease. p N0. Port-A-Cath was placed in left chest wall in anticipation of adjuvant chemotherapy. Chest x-ray done prior to lumpectomy was unremarkable and an echocardiogram done on April 21, 2020 showed no abnormality and an ejection fraction 53%. Patient denies smoking or alcohol use. Patient denies any bony pain but she has history of rheumatoid arthritis with bilateral hand deformities and her past medical history also significant for hypothyroidism, hypertension, type 2 diabetes mellitus, hyperlipidemia and atrial fibrillation for which she is on Eliquis Ms Cedillo was referred to us for further recommendations for treatment of her breast cancer. She has been offered treatment with cyclophosphamide docetaxel with growth factor support. Ms Cedillo has node negative, triple negative, poorly differentiated, grade 3, invasive ductal carcinoma involving right breast, status post lumpectomy with clear surgical margins, no lymphovascular involvement. Stage IIIb disease. As per NCCN guidelines, she is a candidate for adjuvant chemotherapy, considering her age and comorbid condition and ejection fraction around 53%, we would consider adjuvant chemotherapy with Cytoxan 60 mg/m??? and docetaxel 75 mg/m??? every 3 weeks x 4 with Neulasta support. When she has completed the chemotherapy, she will be referred to radiation oncology for post lumpectomy radiation. Mrs Cedillo has completed cycle 3 adjuvant chemotherapy with Cytoxan/docetaxel as of 07/15/2020. She is tolerating it well thus far. Mrs Cedillo is here today for day [address] Lyons's request. She has no concerns today. She did receive growth factor support with Neulasta ONPRO with cycle 3. She denies any bone pain. She denies fever or chills. She states she feels pretty good overall. Her ECOG is 1. Past Medical History: Anxiety Atrial fibrillation Depression Hyperlipidemia Hypertension Hypothyroidism Rheumatoid arthritis Type II diabetes Past Surgical History: Breast biopsy Hysterectomy/bilateral salpingectomy-oophorectomy Mastectomy - partial right Tubal ligation Allergies: No Known Allergies. Medications: Eliquis 1 Tablet (of 5 mg) Oral b.i.d. Euthyrox 1 Tablet (of 100 mcg) Oral daily Gabapentin 1 Capsule (of 100 mg) Oral daily Lisinopril 1 Tablet (of 20 mg) Oral daily Lovastatin 1 Tablet (of 20 mg) Oral daily metFORMIN HCl 1 Tablet (of 500 mg) Oral b.i.d. Metoprolol Tartrate 1 Tablet (of 50 mg) Oral b.i.d. predniSONE 1 Tablet (of 5 mg) Oral daily Rinvoq 1 Tablet (of 15 mg) Tablet SR 24 HR Oral daily Sertraline HCl 1 Tablet (of 100 mg) Oral daily traMADol HCl 1 Tablet (of 50 mg) Oral PRN Family History: Ms. Cedillo's mother at age 84. Ms. Cedillo's father at age 77. pt states she is unsure of the cause of her parents . Social History: Ms. Cedillo is . Ms. Cedillo has never smoked. She has no history of drinking. Review Of Symptoms: Constitutional Denies fevers, chills, night sweats, excessive fatigue or weight loss. She states she gets a little tired with activity but stable. Allergic/Immunologic No reactions. Eyes Denies significant visual changes. No diplopia. No amaurosis. ENMT Denies changes in hearing, sore throat, mouth sores, difficulty or changes in swallowing ability, and/or sinus drainage. Hematologic/Lymphatic Denies easy bruising or bleeding. The patient denies any tender or palpable lymph nodes. Breasts no new concerns Respiratory Denies dyspnea on exertion, chest pain, cough or hemoptysis. Denies orthopnea. Cardiovascular Denies anginal chest pain, palpitations or orthopnea. Gastrointestinal Denies nausea, vomiting, diarrhea, GI bleeding, or constipation. Denies change in bowel habits and/or stool color, no heartburn or early satiety. Genitourinary (F) No hematuria, hesitancy, incontinence, vaginal bleeding, discharge or other problems with urination. Musculoskeletal Denies joint pain, swelling or redness. No decreased range of motion. Integumentary Denies chronic rashes, inflammation, ulcerations or skin changes. Neurologic Denies headache, blurred vision, and no areas of focal weakness or numbness. Normal gait. No sensory problems. Psychiatric Denies insomnia, depression, geoffrey or mood swings. Vital Signs: Performed on Jul 22, 2020 13:26 Height - 61.00 in Weight - 186.6 lbs (LOW) BSA - 1.83 sq.m BMI - 35.26 (HIGH) Temperature - 97.8 F (LOW) Pulse - 93 /min Respiration - 20 /min BP - 140/80 mm(hg) O2 Sat - 97 % Pain - 3 Fatigue - 5,1 - No physically strenuous activity, but ambulatory and able to carry out light or sedentary work (e.g. office work, light house work). (ECOG) Physical Examination: Constitutional Alert, oriented, no acute distress. Skin pink, warm and dry. Head Normocephalic; atraumatic. Eyes Conjunctivae and sclerae are clear and without icterus. Pupils are reactive and equal. ENMT No oral exudates, ulcers, masses, thrush or mucositis. Oropharynx clear. Tongue normal. Respiratory Lungs are clear to auscultation without rhonchi or wheezing. Cardiovascular Regular rate and rhythm of heart without murmurs,clicks, gallops or rubs. Chest Chest is symmetric without chest wall deformities. Left port site has healed well. Abdomen Non-tender, non-distended, no masses or ascites. Good bowel sounds noted in all quads. No guarding or rebound tenderness. No pulsatile masses. Back/Spine Non-tender to palpation. Extremities No visible deformities, no cyanosis, clubbing or edema. Musculoskeletal No tenderness or swelling, normal range of motion without obvious weakness. Integumentary No rashes or lesions. Neurologic No sensory or motor deficits, normal cerebellar function, normal gait. Psychiatric Alert and oriented times three. Coherent speech. Verbalizes understanding of our discussions today. Laboratory:Test performed on Jul 22, 2020 11:00 Sodium 134 mmol/L Potassium 3.9 mmol/L Chloride 98 mmol/L CO2 25 mmol/L Anion Gap 14.9 BUN 7 mg/dL Creatinine 0.5 mg/dL Cr Clearance (Est) 146.5100 mL/min eGFR 123.1 mL/min Glucose 196 mg/dL Osmolality - Calculated 281 mOsm/kg Calcium 9.2 mg/dL Protein, Total 6.6 g/dL Albumin 3.6 g/dL Globulin 3.0 g/dL Bilirubin, Total 0.3 mg/dL ALT (SGPT) 14 U/L AST (SGOT) 14 U/L Alkaline Phosphatase 135 IU/L WBC 10.4 10 3/uL Manual Segs % 53 % Manual Bands % 15.0 % RBC 3.92 10 6/uL HGB 11.7 g/dL Manual Lymphs % 17 % Atypical Lymphs % 3.0 % HCT 37.1 % MCV 94.6 fL Total Cells Counted 100 Manual Monos % 8.0 % MCH 29.8 pg Manual Eos % 0 % MCHC 31.5 g/dL Manual Basos % 0.0 % RDW 15.2 % Metamyelocytes % 4.0 % Platelet Count 177 10 3/cmm MPV 11.6 fL CBC Slide Review Slide Review Perform Platelet Estimate Normal Manual Segs Abs 5.5 10/cmm Manual Bands Abs 1.6 10 3/cmm Manual Neutrophils Abs 7.1 10 3/cmm Manual Monocytes Abs 0.8 10 3/cmm Manual Eosinophils Abs 0.0 10 3/cmm Manual Basophils Abs 0.0 10 3/cmm Impression: Poorly differentiated invasive ductal carcinoma grade 3, triple negative status post right lumpectomy and axillary dissection done on April 27, 2020, final pathology report confirmed grade 3, poorly differentiated invasive ductal carcinoma, ER negative ND negative HER-2/miles negative, invasive component 3.3 x 3.1 x 2.8 cm, with clear surgical margin, no lymphovascular invasion, pT2 0 out of 22 lymph nodes showed metastatic disease, pN 0 Stage IIb, (grade 3, triple negative T2 ,N0) Atrial fibrillation, on Eliquis Type 2 diabetes mellitus Rheumatoid arthritis with deformity of bilateral hands Hypothyroidism, status post thyroid surgery Hypertension Dr. Lyons has offered Mrs. Cedillo adjuvant chemotherapy with cyclophosphamide docetaxel. She also had Neulasta support to prevent chemotherapy-induced neutropenia. She started her first cycle on 06/03/2020. We will plan for 4 cycles of the cyclophosphamide docetaxel. When she completes the adjuvant chemotherapy she will be referred to radiation oncology for postlumpectomy radiation. Plan: PROBLEMS ADDRESSED TODAY A. STAGE IIB TRIPLE NEGATIVE POORLY DIFFERENTIATED INVASIVE DUCTAL CARCINOMA 1. Proceed with cycle 8 day 8 of cyclophosphamide docetaxel. She was treated on day 1 and is tolerating it well. 2. She did receive Neulasta ONPRO for growth factor support. 3. Aggressive antiemetics due to high risk regimen. 4. Labs from 07/22/2020 were reviewed in detail and discussed with Mrs. Cedillo and a copy was given to her. WBC 10.4, hemoglobin 11.7, platelets 177,000 ANC [id number]. Potassium 3.9 random glucose 196 non-fasting, creatinine 0.5 LFTs are normal alk phos is 135 presumably due to Neulasta on pro injection. B. HISTORY OF MOUTH IRRITATION RELATED TO CHEMOTHERAPY 1. Baking soda/salt water rinses up to 4 times daily as needed. 2. She is encouraged to contact us in interim if actual sores arise that we could start her with famciclovir or equivalent. C. FOLLOWUP PLAN 1. We will plan to see her back here in 2 weeks with CBC CMP for consideration of cycle 4 chemotherapy. 2. Mrs. Cedillo was instructed to contact us in interim should questions or problems arise. Signed By: Kathy Kenny-, [facility] Aranza Lyons MD <<Signature on File>>
== END 2020-07-22 06:09 | disposition home or self-care (01) ==
LOC: ONCMED 06:09
PROVIDERS: PCP Family Medicine; Visit Provider Nurse Practitioner
DX: C50.211 Malignant neoplasm of upper-inner quadrant of right female breast (principal); Z17.1 Estrogen receptor negative status [ER-]; D70.1 Agranulocytosis secondary to cancer chemotherapy; T45.1X5A Adverse effect of antineoplastic and immunosuppressive drugs, initial encounter; F41.9 Anxiety disorder, unspecified; I48.91 Unspecified atrial fibrillation; F32.9 Major depressive disorder, single episode, unspecified; E78.5 Hyperlipidemia, unspecified; I10 Essential (primary) hypertension; E03.9 Hypothyroidism, unspecified; M06.9 Rheumatoid arthritis, unspecified; E11.9 Type 2 diabetes mellitus without complications; Z79.899 Other long term (current) drug therapy
CPT/HCPCS: 36415; 80053; 85007; 85025; 99214

== ENCOUNTER 2020-08-17 12:22 | Outpatient (CLI) | payer MEDICARE, SELFPAY ==
[2020-08-17 12:50] LABS: Basophils % 0.6 %; Eosinophils % 0.3 %; Hematocrit 37.7 % (37.0-47.0); Hemoglobin 11.9 g/dL (11.5-15.3); Lymphocytes # 1.4 10^3/uL (0.8-4.8); Lymphocytes % 19.1 %; Mean Corpuscular HGB Conc 31.6 g/dL (30.0-36.0); Mean Corpuscular Hemoglobin 29.7 pg (28.0-34.0); Mean Platelet Volume 9.3 fL (7.4-10.4); Monocytes # 0.4 10^3/uL (0.2-0.9); Monocytes % 6.1 %; Neutrophils # 5.32 10^3/uL (1.8-7.7); Neutrophils % 73.8 %; Nucleated Red Blood Cells % 0 %; Platelet Count 422 10^3/cmm (130-400); Red Blood Count 4.01 10^6/uL (4.1-5.3); Red Cell Distribution Width 15.2 % (12.1-15.1); White Blood Count 7.2 10^3/uL (4.0-10.0)
[2020-08-17 13:08] LABS: Alanine Aminotransferase 8 U/L (0-33); Albumin Level 3.8 g/dL (3.5-5.2); Alkaline Phosphatase 100 IU/L (35-105); Aspartate Amino Transferase 11 U/L (0-32); Blood Urea Nitrogen 10 mg/dL (8-23); Calcium 8.9 mg/dL (8.5-10.5); Carbon Dioxide 28 mmol/L (22-29); Chloride 98 mmol/L (98-107); Globulin 3.7 g/dL (1.3-4.6); Glomerular Filtration Rate 123.1 mL/min (90-130); Glucose 184 mg/dL (65-115); Osmolality Calculated 286 mOsm/kg (285-295); Sodium 136 mmol/L (136-145); Total Bilirubin 0.4 mg/dL (0.15-1.2); Total Protein 7.5 g/dL (6.6-8.7)
[2020-08-17] MEDS: sodium chloride 0.9% 500 ML 75 ML IV (14:56)
[2020-08-17] MEDS: famotidine 20 mg/2 mL INJ IVP (14:56)
[2020-08-17] MEDS: diphenhydrAMINE 50 mg/mL SDV 1mL 25 MG IV (14:58)
[2020-08-17] MEDS: palonosetron 0.25 mg/5 mL SDV IV (15:00)
[2020-08-17] MEDS: pegfilgrastim 6 mg/0.6 mL Kit (onpro) SUBCUT (17:09)
--- NOTE | 2020-08-23 17:01 | ONC FU_ITS ---
[facility] Patient Note Patient: Zulay Cedillo Unit #: [id number]: [id number] Dictated By: Kathy KennyDate of Visit: Aug 17, 2020 Onc MED Follow-Up/Prog Note Chief Complaint: Right breast cancer History of Present Illness: Ms. Cedillo is a 69-year-old female with a history of abnormal mammogram. She underwent needle core biopsy of a right breast mass on April 08, 2020. The pathology showed poorly differentiated invasive ductal carcinoma, grade 3, prognostic profile???confirmed triple negative disease as ER/UT was 0% and HER-2/miles negative. Subsequently, Ms Cedillo was referred to Dr. Cagle. On April 27, 2020, Ms Cedillo underwent right breast lumpectomy with right axillary lymph node dissection. The final pathology report confirmed grade 3, poorly differentiated invasive ductal carcinoma with clear surgical margins and no lymphovascular invasion, invasive component was 3.3 x 3.1 x 2.8 cm, pT2. and 0 out of 22 lymph nodes showed metastatic disease. p N0. Port-A-Cath was placed in left chest wall in anticipation of adjuvant chemotherapy. Chest x-ray done prior to lumpectomy was unremarkable and an echocardiogram done on April 21, 2020 showed no abnormality and an ejection fraction 53%. Patient denies smoking or alcohol use. Patient denies any bony pain but she has history of rheumatoid arthritis with bilateral hand deformities and her past medical history also significant for hypothyroidism, hypertension, type 2 diabetes mellitus, hyperlipidemia and atrial fibrillation for which she is on Eliquis Ms Cedillo was referred to us for further recommendations for treatment of her breast cancer. She has been offered treatment with cyclophosphamide docetaxel with growth factor support. Ms Cedillo has node negative, triple negative, poorly differentiated, grade 3, invasive ductal carcinoma involving right breast, status post lumpectomy with clear surgical margins, no lymphovascular involvement. Stage IIIb disease. As per NCCN guidelines, she is a candidate for adjuvant chemotherapy, considering her age and comorbid condition and ejection fraction around 53%, we would consider adjuvant chemotherapy with Cytoxan 60 mg/m??? and docetaxel 75 mg/m??? every 3 weeks x 4 with Neulasta support. When she has completed the chemotherapy, she will be referred to radiation oncology for post lumpectomy radiation. Mrs Cedillo has completed cycle 3 adjuvant chemotherapy with Cytoxan/docetaxel as of 07/15/2020. She did receive growth factor support with Neulasta ONPRO with cycle 3. She is here today for follow-up. She is due for cycle 4 docetaxel cyclophosphamide. She states overall she is doing pretty good. She is having a flare of her arthritis symptoms though. She states the joints in her hands and knees have been swelling. She states she has been having a hard time with activities of daily living due to the swelling and pain. She does not have any current arthritis treatment. She states she has responded well to steroids in the past. She does feel some better when she takes the premed dexamethasone for the docetaxel. She denies any new shortness of breath orthopnea. She states she has been having some chills off and on but start does this when she has a flare of her RA. She denies any fever. She is had no signs or symptoms of infection. She denies any nausea or vomiting. She has had slight peripheral neuropathy in her fingers but states that that is stable and no worse than what it has been. She denies any nausea or vomiting. She denies any diarrhea or constipation. Currently her ECOG is 2 due to the RA pain. Past Medical History: Anxiety Atrial fibrillation Depression Hyperlipidemia Hypertension Hypothyroidism Rheumatoid arthritis Type II diabetes Past Surgical History: Breast biopsy Hysterectomy/bilateral salpingectomy-oophorectomy Mastectomy - partial right Tubal ligation Allergies: No Known Allergies. Medications: Eliquis 1 Tablet (of 5 mg) Oral b.i.d. Euthyrox 1 Tablet (of 100 mcg) Oral daily Gabapentin 1 Capsule (of 100 mg) Oral daily Lisinopril 1 Tablet (of 20 mg) Oral daily Lovastatin 1 Tablet (of 20 mg) Oral daily metFORMIN HCl 1 Tablet (of 500 mg) Oral b.i.d. Metoprolol Tartrate 1 Tablet (of 50 mg) Oral b.i.d. predniSONE 1 Tablet (of 5 mg) Oral daily Rinvoq 1 Tablet (of 15 mg) Tablet SR 24 HR Oral daily Sertraline HCl 1 Tablet (of 100 mg) Oral daily traMADol HCl 1 Tablet (of 50 mg) Oral PRN Family History: Ms. Cedillo's mother at age 84. Ms. Cedillo's father at age 77. pt states she is unsure of the cause of her parents . Social History: Ms. Cedillo is . Ms. Cedillo has never smoked. She has no history of drinking. Review Of Symptoms: Constitutional Denies fevers, chills, night sweats, excessive fatigue or weight loss. She states she gets a little tired with activity but stable. Allergic/Immunologic No reactions. Eyes Denies significant visual changes. No diplopia. No amaurosis. ENMT Denies changes in hearing, sore throat, mouth sores, difficulty or changes in swallowing ability, and/or sinus drainage. Hematologic/Lymphatic Denies easy bruising or bleeding. The patient denies any tender or palpable lymph nodes. Breasts no new concerns Respiratory Denies dyspnea on exertion, chest pain, cough or hemoptysis. Denies orthopnea. Cardiovascular Denies anginal chest pain, palpitations or orthopnea. Gastrointestinal Denies nausea, vomiting, diarrhea, GI bleeding, or constipation. Denies change in bowel habits and/or stool color, no heartburn or early satiety. Genitourinary (F) No hematuria, hesitancy, incontinence, vaginal bleeding, discharge or other problems with urination. Musculoskeletal My arthritis has been terrible for the last week . See above Integumentary Denies chronic rashes, inflammation, ulcerations or skin changes. Neurologic Denies headache, blurred vision, and no areas of focal weakness or numbness. Slow gait. No sensory problems. Psychiatric Denies insomnia, depression, geoffrey or mood swings. Vital Signs: Performed on Aug 17, 2020 14:22 Height - 61.00 in Weight - 186.0 lbs (LOW) BSA - 1.83 sq.m BMI - 35.14 (HIGH) Temperature - 98 F (LOW) Pulse - 68 /min Respiration - 18 /min BP - 173/94 mm(hg) (HIGH) O2 Sat - 97 % Pain - 8,2 - Ambulatory/capable of all self-care, unable to perform any work activities. Up and about more than 50% of waking hours. (ECOG) Physical Examination: Constitutional Alert, oriented, no acute distress. Skin pink, warm and dry. Head Normocephalic; atraumatic. Eyes Conjunctivae and sclerae are clear and without icterus. Pupils are reactive and equal. Neck Supple without masses or thyromegaly. No jugular venous distension. Hematologic/Lymphatic No petechiae or purpura. No tender or palpable lymph nodes in the cervical or supraclavicular areas. Respiratory Lungs are clear to auscultation without rhonchi or wheezing. Cardiovascular Regular rate and rhythm of heart without murmurs,clicks, gallops or rubs. Chest Left port site has healed well. Abdomen Non-tender, non-distended, no masses or ascites. Good bowel sounds noted in all quads. No guarding or rebound tenderness. No pulsatile masses. Back/Spine Non-tender to palpation. Extremities No visible deformities, no cyanosis, clubbing or edema. She does have swelling and tenderness in the joints on both hands and fingers. Her knees are warm and swollen bilaterally. Musculoskeletal see above Integumentary No rashes or lesions. Neurologic No sensory or motor deficits, normal cerebellar function, normal gait. Psychiatric Alert and oriented times three. Coherent speech. Verbalizes understanding of our discussions today. Laboratory:Test performed on Aug 17, 2020 12:38 Sodium 136 mmol/L Potassium 4.0 mmol/L Chloride 98 mmol/L CO2 28 mmol/L Anion Gap 14.0 BUN 10 mg/dL Creatinine 0.5 mg/dL Cr Clearance (Est) 146.5100 mL/min eGFR 123.1 mL/min Glucose 184 mg/dL Osmolality - Calculated 286 mOsm/kg Calcium 8.9 mg/dL Protein, Total 7.5 g/dL Albumin 3.8 g/dL Globulin 3.7 g/dL Bilirubin, Total 0.4 mg/dL ALT (SGPT) 8 U/L AST (SGOT) 11 U/L Alkaline Phosphatase 100 IU/L WBC 7.2 10 3/uL RBC 4.01 10 6/uL HGB 11.9 g/dL HCT 37.7 % MCV 94.0 fL MCH 29.7 pg MCHC 31.6 g/dL RDW 15.2 % Platelet Count 422 10 3/cmm MPV 9.3 fL Neutrophils 5.32 10 3/uL Lymphocytes 1.4 10 3/uL Monocytes 0.4 10 3/uL Eosinophils 0.0 10 3/uL Basophils 0.0 10 3/uL Neutrophil % 73.8 % Lymphocyte % 19.1 % Monocyte % 6.1 % Eosinophil % 0.3 % Basophils % 0.6 % NRBC % 0 % Test performed on Aug 03, 2020 15:11 A/G Ratio 1.1 Absolute Value Test performed on Jul 22, 2020 11:00 Manual Segs % 53 % Manual Bands % 15.0 % Manual Lymphs % 17 % Atypical Lymphs % 3.0 % Total Cells Counted 100 Manual Monos % 8.0 % Manual Eos % 0 % Manual Basos % 0.0 % Metamyelocytes % 4.0 % CBC Slide Review Slide Review Perform Platelet Estimate Normal Manual Segs Abs 5.5 10/cmm Manual Bands Abs 1.6 10 3/cmm Manual Neutrophils Abs 7.1 10 3/cmm Manual Monocytes Abs 0.8 10 3/cmm Manual Eosinophils Abs 0.0 10 3/cmm Manual Basophils Abs 0.0 10 3/cmm Impression: Poorly differentiated invasive ductal carcinoma grade 3, triple negative status post right lumpectomy and axillary dissection done on April 27, 2020, final pathology report confirmed grade 3, poorly differentiated invasive ductal carcinoma, ER negative UT negative HER-2/miles negative, invasive component 3.3 x 3.1 x 2.8 cm, with clear surgical margin, no lymphovascular invasion, pT2 0 out of 22 lymph nodes showed metastatic disease, pN 0 Stage IIb, (grade 3, triple negative T2 ,N0) Atrial fibrillation, on Eliquis Type 2 diabetes mellitus Rheumatoid arthritis with deformity of bilateral hands Hypothyroidism, status post thyroid surgery Hypertension Dr. Lyons has offered Mrs. Cedillo adjuvant chemotherapy with cyclophosphamide docetaxel. She also had Neulasta support to prevent chemotherapy-induced neutropenia. She started her first cycle on 06/03/2020. We will plan for 4 cycles of the cyclophosphamide docetaxel. When she completes the adjuvant chemotherapy she will be referred to radiation oncology for postlumpectomy radiation. Plan: PROBLEMS ADDRESSED TODAY A. STAGE IIB TRIPLE NEGATIVE POORLY DIFFERENTIATED INVASIVE DUCTAL CARCINOMA 1. Proceed with cycle 4 day 1 of cyclophosphamide docetaxel. Premed steroid compliance confirmed. 2. She did receive Neulasta ONPRO for growth factor support. We will plan to continue the growth factor support as her ANC today is 5320. Her ANC on day 1 of cycle 2 was 5500 and on day 8 it was 300. That was with Neulasta support. 3. Aggressive antiemetics due to high risk regimen. 4. Labs from 08/17/2020 were reviewed in detail and discussed with Mrs. Cedillo and a copy was given to her. WBC 7.2, hemoglobin 11.9, platelets 4-22,000 ANC is 5320. Potassium 4.0 creatinine 0.5 random glucose 184 LFTs are normal. B. HISTORY OF MOUTH IRRITATION RELATED TO CHEMOTHERAPY 1. Baking soda/salt water rinses up to 4 times daily as needed. 2. She is encouraged to contact us in interim if actual sores arise that we could start her with famciclovir or equivalent. C. Rheumatoid arthritis 1. We have discussed steroid usage. She has responded to this well in the past. We did discuss that she does have elevated blood sugar as well as a type 2 diabetes diagnosis and atrial fibrillation, so we will need to watch her carefully. She is willing to try prednisone 20 mg 1 daily and titrate up to a max of 40 mg daily if needed. She is advised to titrate by 2-1/2 to 5 mg every week or every other week as tolerated due to the pain. 2. I have also given her prescription for hydrocodone for pain relief as the pain is currently impairing her ADLs. D. FOLLOWUP PLAN 1. We will plan to see her back here in 3-4 weeks with CBC CMP for further plan of care after completion of the current chemotherapy plan. The tentative plan was to refer her to radiation oncology post chemotherapy. 2. Mrs. Cedillo was instructed to contact us in interim should questions or problems arise. Signed By: Kathy Kenny-, AOCNP Aranza Lyons MD <<Signature on File>>
== END 2020-08-17 12:23 | disposition home or self-care (01) ==
PROVIDERS: PCP Family Medicine; Visit Provider Nurse Practitioner
DX: Z51.11 Encounter for antineoplastic chemotherapy (principal); C50.211 Malignant neoplasm of upper-inner quadrant of right female breast; Z17.1 Estrogen receptor negative status [ER-]; M06.9 Rheumatoid arthritis, unspecified; Z76.89 Persons encountering health services in other specified circumstances; Z51.81 Encounter for therapeutic drug level monitoring; Z79.899 Other long term (current) drug therapy; Z79.52 Long term (current) use of systemic steroids
CPT/HCPCS: 80053; 85025; 96367; 96372; 96375; 96413; 96417; 99215; J1100; J1200; J2469; J2505; J3490; J7040; J7050; J9070; J9171

== ENCOUNTER 2020-09-15 13:32 | Outpatient (CLI) | payer MEDICARE, SELFPAY ==
[2020-09-15 14:39] LABS: Basophils % 0.6 %; Eosinophils # 0.1 10^3/uL (0.0-0.8); Eosinophils % 0.9 %; Hematocrit 39.1 % (37.0-47.0); Hemoglobin 11.9 g/dL (11.5-15.3); Lymphocytes # 1.6 10^3/uL (0.8-4.8); Lymphocytes % 23.2 %; Mean Corpuscular HGB Conc 30.4 g/dL (30.0-36.0); Mean Corpuscular Hemoglobin 29.2 pg (28.0-34.0); Mean Corpuscular Volume 95.8 fL (81-99); Mean Platelet Volume 10.4 fL (7.4-10.4); Monocytes # 0.6 10^3/uL (0.2-0.9); Monocytes % 9.2 %; Neutrophils # 4.51 10^3/uL (1.8-7.7); Neutrophils % 65.8 %; Nucleated Red Blood Cells % 0 %; Platelet Count 265 10^3/cmm (130-400); Red Blood Count 4.08 10^6/uL (4.1-5.3); Red Cell Distribution Width 16.4 % (12.1-15.1); White Blood Count 6.9 10^3/uL (4.0-10.0)
[2020-09-15 14:54] LABS: Alanine Aminotransferase 10 U/L (0-33); Albumin Level 3.8 g/dL (3.5-5.2); Alkaline Phosphatase 92 IU/L (35-105); Aspartate Amino Transferase 12 U/L (0-32); Blood Urea Nitrogen 17 mg/dL (8-23); Carbon Dioxide 28 mmol/L (22-29); Chloride 104 mmol/L (98-107); Globulin 3.5 g/dL (1.3-4.6); Glomerular Filtration Rate 158.7 mL/min (90-130); Glucose 119 mg/dL (65-115); Osmolality Calculated 295 mOsm/kg (285-295); Sodium 141 mmol/L (136-145); Total Bilirubin 0.4 mg/dL (0.15-1.2); Total Protein 7.3 g/dL (6.6-8.7)
--- NOTE | 2020-09-15 15:53 | ONC FU_ITS ---
Dr. Lyons follow up note Patient: Zulay Cedillo Unit #: [id number]: 1950 Dicatated By: Aranza Lyons M.D.Date of Visit:Sep 15, 2020 Onc Med Follow-up/Prog Note History of Present Illness: Ms. Cedillo is a 70-year-old female with a history of abnormal mammogram. She underwent needle core biopsy of a right breast mass on April 08, 2020. The pathology showed poorly differentiated invasive ductal carcinoma, grade 3, prognostic profile???confirmed triple negative disease as ER/MT was 0% and HER-2/miles negative. Subsequently, Ms Cedillo was referred to Dr. Cagle. On April 27, 2020, Ms Cedillo underwent right breast lumpectomy with right axillary lymph node dissection. The final pathology report confirmed grade 3, poorly differentiated invasive ductal carcinoma with clear surgical margins and no lymphovascular invasion, invasive component was 3.3 x 3.1 x 2.8 cm, pT2. and 0 out of 22 lymph nodes showed metastatic disease. p N0. Port-A-Cath was placed in left chest wall in anticipation of adjuvant chemotherapy. Chest x-ray done prior to lumpectomy was unremarkable and an echocardiogram done on April 21, 2020 showed no abnormality and an ejection fraction 53%. Patient denies smoking or alcohol use. Patient denies any bony pain but she has history of rheumatoid arthritis with bilateral hand deformities and her past medical history also significant for hypothyroidism, hypertension, type 2 diabetes mellitus, hyperlipidemia and atrial fibrillation for which she is on Eliquis Ms Cedillo was referred to us for further recommendations for treatment of her breast cancer. She has been offered treatment with cyclophosphamide docetaxel with growth factor support. Ms Cedillo has node negative, triple negative, poorly differentiated, grade 3, invasive ductal carcinoma involving right breast, status post lumpectomy with clear surgical margins, no lymphovascular involvement. Stage IIIb disease. As per NCCN guidelines, she is a candidate for adjuvant chemotherapy, considering her age and comorbid condition and ejection fraction around 53%, we would consider adjuvant chemotherapy with Cytoxan 600 mg/m??? and docetaxel 75 mg/m??? every 3 weeks x 4 with Neulasta support.Which she completed on August 17, 2020 Came for follow-up, denies any specific complaints except off and on anxiety, she is on Zoloft but without much help otherwise no fever chills, no nausea or vomiting, no diarrhea or constipation, no mouth sores, no skin rash but alopecia due to chemotherapy. Patient has completed 4 cycles of chemotherapy with Cytoxan/docetaxel on August 17, 2020 Medications: Eliquis 1 Tablet (of 5 mg) Oral b.i.d., Euthyrox 1 Tablet (of 100 mcg) Oral daily, Gabapentin 1 Capsule (of 100 mg) Oral daily, Lisinopril 1 Tablet (of 20 mg) Oral daily, Lovastatin 1 Tablet (of 20 mg) Oral daily, metFORMIN HCl 1 Tablet (of 500 mg) Oral b.i.d., Metoprolol Tartrate 1 Tablet (of 100 mg) Oral b.i.d., predniSONE 1 Tablet (of 5 mg) Oral daily, Rinvoq 1 Tablet (of 15 mg) Tablet SR 24 HR Oral daily, Sertraline HCl 1 Tablet (of 100 mg) Oral daily, traMADol HCl 1 Tablet (of 50 mg) Oral PRN Allergies: No Known Allergies. Review of Systems: Review of Systems is not available for this patient. Vital Signs: Performed on Sep 15, 2020 15:22 Height - 61.00 in Weight - 187 lbs (HIGH) BSA - 1.84 sq.m BMI - 35.33 (HIGH) Temperature - 97.7 F (LOW) Pulse - 85 /min Respiration - 18 /min BP - 136/86 mm(hg) O2 Sat - 97 % Pain - 5 Performance Status: 0 - Fully active, able to carry on all predisease activities without restrictions. (ECOG) Physical Examination: Respiratory - Lungs are clear to auscultation, Cardiovascular - Regular rate and rhythm of heart, Gastrointestinal - Soft, bowel sounds present, Extremities - No visible edema. Lab/Imaging: Test performed on Aug 17, 2020 12:38 Sodium 136 mmol/L Potassium 4.0 mmol/L Chloride 98 mmol/L CO2 28 mmol/L Anion Gap 14.0 BUN 10 mg/dL Creatinine 0.5 mg/dL Cr Clearance (Est) 146.5100 mL/min eGFR 123.1 mL/min Glucose 184 mg/dL Osmolality - Calculated 286 mOsm/kg Calcium 8.9 mg/dL Protein, Total 7.5 g/dL Albumin 3.8 g/dL Globulin 3.7 g/dL Bilirubin, Total 0.4 mg/dL ALT (SGPT) 8 U/L AST (SGOT) 11 U/L Alkaline Phosphatase 100 IU/L WBC 7.2 10 3/uL RBC 4.01 10 6/uL HGB 11.9 g/dL HCT 37.7 % MCV 94.0 fL MCH 29.7 pg MCHC 31.6 g/dL RDW 15.2 % Platelet Count 422 10 3/cmm MPV 9.3 fL Neutrophils 5.32 10 3/uL Lymphocytes 1.4 10 3/uL Monocytes 0.4 10 3/uL Eosinophils 0.0 10 3/uL Basophils 0.0 10 3/uL Neutrophil % 73.8 % Lymphocyte % 19.1 % Monocyte % 6.1 % Eosinophil % 0.3 % Basophils % 0.6 % NRBC % 0 % Test performed on Aug 03, 2020 15:11 A/G Ratio 1.1 Absolute Value Test performed on Jul 22, 2020 11:00 Manual Segs % 53 % Manual Bands % 15.0 % Manual Lymphs % 17 % Atypical Lymphs % 3.0 % Total Cells Counted 100 Manual Monos % 8.0 % Manual Eos % 0 % Manual Basos % 0.0 % Metamyelocytes % 4.0 % CBC Slide Review Slide Review Perform Platelet Estimate Normal Manual Segs Abs 5.5 10/cmm Manual Bands Abs 1.6 10 3/cmm Manual Neutrophils Abs 7.1 10 3/cmm Manual Monocytes Abs 0.8 10 3/cmm Manual Eosinophils Abs 0.0 10 3/cmm Manual Basophils Abs 0.0 10 3/cmm Impression: Poorly differentiated invasive ductal carcinoma grade 3, triple negative status post right lumpectomy and axillary dissection done on April 27, 2020, final pathology report confirmed grade 3, poorly differentiated invasive ductal carcinoma, ER negative MT negative HER-2/miles negative, invasive component 3.3 x 3.1 x 2.8 cm, with clear surgical margin, no lymphovascular invasion, pT2 0 out of 22 lymph nodes showed metastatic disease, pN 0 Stage IIb, (grade 3, triple negative T2 ,N0) s/p adjuvant chemotherapy with cyclophosphamide docetaxel. She also had Neulasta support to prevent chemotherapy-induced neutropenia. She started her first cycle on 06/03/2020.And completed recommended 4 cycles of Cytoxan/docetaxel on August 17, 2020 Atrial fibrillation, on Eliquis Type 2 diabetes mellitus Rheumatoid arthritis with deformity of bilateral hands Hypothyroidism, status post thyroid surgery Hypertension Plan: Discussed with patient regarding her labs white blood count 6.9 hemoglobin 11.7 hematocrit 39.1 platelets 265,000 CMP within normal limits Clinically, patient doing well with no new signs symptoms, has completed recommended adjuvant chemotherapy with Cytoxan/docetaxel and now her follow-up lab work-up shows excellent recovery, overall patient is feeling well except off and on anxiety and patient is on Zoloft without much help, at this point will recommend Ativan 0.5 mg every 6 hours as needed for anxiety and as patient has completed adjuvant chemotherapy now we will refer her to radiation oncology for right breast postlumpectomy radiation therapy. She return to clinic in 3 months with CBC and CMP Signed By: Aranza Lyons M.D. <<Signature on File>>
== END 2020-09-15 13:33 | disposition home or self-care (01) ==
PROVIDERS: PCP Family Medicine; Visit Provider Internal Medicine Hematology & Oncology
DX: C50.211 Malignant neoplasm of upper-inner quadrant of right female breast (principal); Z17.1 Estrogen receptor negative status [ER-]; D70.1 Agranulocytosis secondary to cancer chemotherapy; T45.1X5A Adverse effect of antineoplastic and immunosuppressive drugs, initial encounter; I48.20 Chronic atrial fibrillation, unspecified; Z79.01 Long term (current) use of anticoagulants; E11.9 Type 2 diabetes mellitus without complications; M06.9 Rheumatoid arthritis, unspecified; M21.942 Unspecified acquired deformity of hand, left hand; M21.941 Unspecified acquired deformity of hand, right hand; E03.9 Hypothyroidism, unspecified; I10 Essential (primary) hypertension; Z79.899 Other long term (current) drug therapy
CPT/HCPCS: 36591; 80053; 85025; 99214

== ENCOUNTER 2020-10-15 05:49 | Outpatient (RCR) | payer MEDICARE, SELFPAY ==
--- NOTE | 2020-09-20 14:13 | N.ONRAD NP_ITS ---
Radiation Oncology Consultation Patient Name: Zulay Cedillo Date of : 1950 Date of Service: 09/20/2020 Attending Physician: Mick Cabrera M.D. Zulay Cedillo was seen in consultation this afternoon at the request of Skip Lyons M.D. for consideration of adjuvant radiotherapy for the management of her early stage breast cancer. She was evaluated in the fall 2019 for a palpable right breast mass. A diagnostic mammography with tomosynthesis March 22, 2020 identified a prominent mass in the right breast. Ultrasonography demonstrated a 1.6 cm x 2.4 cm x 1.7 cm hypoechoic mass at the 2 o'clock position within the right breast. A needle core biopsy completed on April 08, 2020 diagnosed a grade III invasive ductal carcinoma. The breast cancer profile was negative for estrogen receptor, progesterone receptor, and HER-2. The Ki-67 was 50%. A right partial mastectomy with axillary lymph node dissection was performed by Michaela Cagle M.D. on April 27, 2020. [facility] confirmed a 3.3 cm invasive ductal carcinoma (grade III). A total of 22 lymph nodes were harvested lymph node. All were negative for metastasis. All surgical margins were negative. Adjuvant chemotherapy (4 cycles of Cytoxan and Taxotere) was administered between the dates of June 03, 2020 through August 17, 2020. The patient presents for evaluation regarding adjuvant radiotherapy. I discussed the [place] Joint Commission on Cancer Staging and specifically the patient's pathologic stage IIA (T2N0) breast cancer. I also reviewed the National Comprehensive Cancer Network Guidelines endorsing adjuvant radiotherapy and the classic studies by the NSABP comparing mastectomy, lumpectomy, and lumpectomy with radiotherapy in addition to the Early Breast Cancer Trialist Collaborative Group meta-analysis that established this standard. She is aware that the addition of radiotherapy to lumpectomy provides improvement in local control and overall survival. Prior to beginning treatment, a planning CT scan will be acquired to delineate the clinical target volume. I would recommend a three week course of hypofractionated radiotherapy to the breast. An additional week will be administered to the surgical bed at the conclusion of the whole breast treatment as a consequence of the patient's high-grade tumor characteristics The patient has verbalized understanding and would like to proceed as recommended. Signed by: Dr. Mick Cabrera 09/22/2020 7:53:37 AM
--- NOTE | 2020-09-22 | CT_ITS ---
Radiation Therapy Planning CT images; total exam DLP: 1154.86 mGy-cm MTDD
--- NOTE | 2020-09-23 | CT_ITS ---
Radiation Therapy Planning CT images; total exam DLP: 1018.09 mGy-cm MTDD
--- NOTE | 2020-09-27 11:30 | ONCRAD TMN_ITS ---
Radiation Oncology Treatment Management Note Patient Name: Zulay Cedillo Date of : 1950 Date of Service: 09/27/2020 Attending Physician: Mick Cabrera M.D. Zulay Cedillo is a 70 year-old white female diagnosed with pathological stage IIA (T2N0) grade 3 invasive ductal carcinoma of the upper-inner quadrant of the right breast. The breast cancer profile was negative for estrogen receptor, progesterone receptor and HER2. The Ki-67 of 50%. A right partial mastectomy with axillary lymph node dissection was performed on April 27, 2020 by Michaela Cagle M.D. Adjuvant chemotherapy (4 cycles of Cytoxan and Taxotere) was administered between the dates of June 03, 2020 through August 17, 2020 under the supervision of Aranza Lyons M.D. She has received 2.7 Gy of a prescribed 40 Gy delivered with a 3D conformal radiotherapy plan utilizing opposed tangential portal bray. An additional 10 Gy in 5 fractions will be administered to the surgical bed at the conclusion of the whole breast treatment as a consequence of the patient's high-grade tumor characteristics. Upon review of systems, she denied any breast complaints to radiotherapy. On physical examination, the patient weighed 188 lbs. Her temperature was 98.8 ???F with a blood pressure of 141/95 mmHg. Her pulse was 104 bpm and her respiratory rate was 18. There was no erythema within the treatment bray of the right breast. Continue hypofractionated right breast radiotherapy as prescribed. Signed by: Dr. Mick Cabrera 09/27/2020 11:29:59 AM
--- NOTE | 2020-10-04 11:26 | ONCRAD TMN_ITS ---
Radiation Oncology Treatment Management Note Patient Name: Zulay Cedillo Date of : 1950 Date of Service: 10/04/2020 Attending Physician: Mick Cabrera M.D. Zulay Cedillo is a 70 year-old white female diagnosed with pathological stage IIA (T2N0) grade 3 invasive ductal carcinoma of the upper-inner quadrant of the right breast. The breast cancer profile was negative for estrogen receptor, progesterone receptor and HER2. The Ki-67 of 50%. A right partial mastectomy with axillary lymph node dissection was performed on April 27, 2020 by Michaela Cagle M.D. Adjuvant chemotherapy (4 cycles of Cytoxan and Taxotere) was administered between the dates of June 03, 2020 through August 17, 2020 under the supervision of Aranza Lyons M.D. She has received 16 Gy of a prescribed 40 Gy delivered to the right breast with a 3D conformal radiotherapy plan utilizing opposed tangential portal bray. An additional 10 Gy in 5 fractions will be administered to the surgical bed at the conclusion of the whole breast treatment as a consequence of the patient's high-grade tumor characteristics. Upon review of systems, she denied any breast complaints to radiotherapy. On physical examination, the patient weighed 186 lbs. Her temperature was 98.7 ???F with a blood pressure of 161/101 mmHg. Her pulse was 89 bpm and her respiratory rate was 20. There was no erythema within the treatment bray of the right breast. Continue hypofractionated right breast radiotherapy as planned. Signed by: Dr. Mick Cabrera 10/04/2020 11:24:59 AM
--- NOTE | 2020-10-11 13:12 | ONCRAD TMN_ITS ---
Radiation Oncology Treatment Management Note Patient Name: Zulay Cedillo Date of : 1950 Date of Service: 10/11/2020 Attending Physician: Mick Cabrera M.D. Zulay Cedillo is a 70 year-old white female diagnosed with pathological stage IIA (T2N0) grade 3 invasive ductal carcinoma of the upper-inner quadrant of the right breast. The breast cancer profile was negative for estrogen receptor, progesterone receptor and HER2. The Ki-67 of 50%. A right partial mastectomy with axillary lymph node dissection was performed on April 27, 2020 by Michaela Cagle M.D. Adjuvant chemotherapy (4 cycles of Cytoxan and Taxotere) was administered between the dates of June 03, 2020 through August 17, 2020 under the supervision of Aranza Lyons M.D. She has received 29.3 Gy of a prescribed 40 Gy delivered to the right breast with a 3D conformal radiotherapy plan utilizing opposed tangential portal bray. An additional 10 Gy in 5 fractions will be administered to the surgical bed at the conclusion of the whole breast treatment as a consequence of the patient's high-grade tumor characteristics. Upon review of systems, she denied any breast complaints to radiotherapy. On physical examination, the patient weighed 186 lbs. Her temperature was 98 ???F with a blood pressure of 136/74 mmHg. Her pulse was 88 bpm and her respiratory rate was 18. There was no erythema within the treatment bray of the right breast. Continue hypofractionated right breast radiotherapy as prescribed. Signed by: Dr. Mick Cabrera 10/11/2020 1:11:20 PM
== END 2020-10-15 23:59 | disposition home or self-care (01) ==
LOC: ONCMED 05:49
PROVIDERS: PCP Family Medicine; Visit Provider Radiology Radiation Oncology
DX: Z51.0 Encounter for antineoplastic radiation therapy (principal); C50.811 Malignant neoplasm of overlapping sites of right female breast; Z17.1 Estrogen receptor negative status [ER-]; I48.20 Chronic atrial fibrillation, unspecified; Z79.01 Long term (current) use of anticoagulants; E11.9 Type 2 diabetes mellitus without complications; M06.9 Rheumatoid arthritis, unspecified; M21.942 Unspecified acquired deformity of hand, left hand; M21.941 Unspecified acquired deformity of hand, right hand; E03.9 Hypothyroidism, unspecified; I10 Essential (primary) hypertension; Z79.899 Other long term (current) drug therapy
CPT/HCPCS: 77280; 77295; 77300; 77334; 77336; 77387; 77412; 99205

== ENCOUNTER 2020-11-05 05:41 | Outpatient (RCR) | payer MEDICARE, SELFPAY ==
--- NOTE | 2020-10-18 13:24 | ONCRAD TMN_ITS ---
Radiation Oncology Treatment Management Note Patient Name: Zulay Cedillo Date of : 1950 Date of Service: 10/18/2020 Attending Physician: Mick Cabrera M.D. Zulay Cedillo is a 70 year-old white female diagnosed with pathological stage IIA (T2N0) grade 3 invasive ductal carcinoma of the upper-inner quadrant of the right breast. The breast cancer profile was negative for estrogen receptor, progesterone receptor and HER2. The Ki-67 of 50%. A right partial mastectomy with axillary lymph node dissection was performed on April 27, 2020 by Michaela Cagle M.D. Adjuvant chemotherapy (4 cycles of Cytoxan and Taxotere) was administered between the dates of June 03, 2020 through August 17, 2020 under the supervision of Aranza Lyons M.D. She has received 42 Gy of a prescribed 50 Gy delivered to the right breast with a 3D conformal radiotherapy plan utilizing opposed tangential portal bray. Upon review of systems, she denied any breast complaints to radiotherapy. On physical examination, the patient weighed 183 lbs. Her temperature was 98.6 ???F with a blood pressure of 145/88 mmHg. Her pulse was 95 bpm and her respiratory rate was 18. There was no erythema within the treatment bray of the right breast. Continue hypofractionated right breast radiotherapy as planned. Signed by: Dr. Mick Cabrera 10/18/2020 1:22:27 PM
--- NOTE | 2020-11-05 10:56 | ONCRAD EPV_ITS ---
Radiation Oncology Follow-Up Note Patient Name: Zulay Cedillo Date of : 1950 Date of Service: 11/05/2020 Attending Physician: Mick Cabrera M.D. Zulay Cedillo returned to my office this morning for a routinely scheduled follow-up appointment. She completed adjuvant right breast radiotherapy in October for the post-operative management of a pathological stage IIA (T2N0) grade 3 invasive ductal carcinoma of the upper-inner quadrant of the right breast. The breast cancer profile was negative for estrogen receptor, progesterone receptor and HER2. The Ki-67 of 50%. A right partial mastectomy with axillary lymph node dissection was performed on April 27, 2020 by Michaela Cagle M.D. Adjuvant chemotherapy (4 cycles of Cytoxan and Taxotere) was administered between the dates of June 03, 2020 through August 17, 2020 under the supervision of Aranza Lyons M.D. Daily radiotherapy was administered between the dates of September 27, 2020 through October 22, 2020. A prescribe dose of 50 Gy was delivered in 20 fractions encompassing 26 elapsed days. On review of systems, she did not report any breast complaints. On physical examination, she weighed 182 lbs and her temperature was 97.3???F. Her blood pressure was 133/77 mmHg. The pulse was 95 bpm and her respiratory rate was 20. Examination of the right breast did not reveal any significant erythema nor hyperpigmentation. In summary, Ms. Cedillo returned for a routine post radiotherapy follow-up. She does not have any sequelae from treatment. The patient will continue follow-up with her medical oncologist as scheduled. Signed by: Dr. Mick Cabrera 11/05/2020 10:54:14 AM
== END 2020-11-15 23:59 | disposition home or self-care (01) ==
LOC: ONCMED 05:41
PROVIDERS: PCP Family Medicine; Visit Provider Radiology Radiation Oncology
DX: Z51.0 Encounter for antineoplastic radiation therapy (principal); C50.211 Malignant neoplasm of upper-inner quadrant of right female breast; Z17.1 Estrogen receptor negative status [ER-]; Z79.899 Other long term (current) drug therapy
CPT/HCPCS: 77336; 77387; 77412; 99024

== ENCOUNTER 2020-12-08 11:02 | Outpatient (CLI) | payer MEDICARE, SELFPAY ==
[2020-12-08 11:35] LABS: Basophils % 0.4 %; Eosinophils % 0.4 %; Hematocrit 39.6 % (37.0-47.0); Hemoglobin 12.3 g/dL (11.5-15.3); Lymphocytes # 1.6 10^3/uL (0.8-4.8); Lymphocytes % 19.6 %; Mean Corpuscular HGB Conc 31.1 g/dL (30.0-36.0); Mean Corpuscular Hemoglobin 28.4 pg (28.0-34.0); Mean Corpuscular Volume 91.5 fL (81-99); Mean Platelet Volume 9.9 fL (7.4-10.4); Monocytes # 0.5 10^3/uL (0.2-0.9); Monocytes % 6.3 %; Neutrophils # 6.04 10^3/uL (1.8-7.7); Neutrophils % 72.9 %; Nucleated Red Blood Cells % 0 %; Platelet Count 315 10^3/cmm (130-400); Red Blood Count 4.33 10^6/uL (4.1-5.3); Red Cell Distribution Width 16.7 % (12.1-15.1); White Blood Count 8.3 10^3/uL (4.0-10.0)
[2020-12-08 11:55] LABS: Alanine Aminotransferase 9 U/L (0-33); Albumin Level 3.5 g/dL (3.5-5.2); Alkaline Phosphatase 89 IU/L (35-105); Anion Gap 13.8 (5-19); Aspartate Amino Transferase 11 U/L (0-32); Blood Urea Nitrogen 15 mg/dL (8-23); C Reactive Protein 52.7 mg/L (0.0-4.9); Calcium 8.5 mg/dL (8.5-10.5); Carbon Dioxide 27 mmol/L (22-29); Chloride 102 mmol/L (98-107); Globulin 3.1 g/dL (1.3-4.6); Glomerular Filtration Rate 158.7 mL/min (90-130); Glucose 161 mg/dL (65-115); Osmolality Calculated 292 mOsm/kg (285-295); Potassium 3.8 mmol/L (3.5-5.1); Sodium 139 mmol/L (136-145); Total Bilirubin 0.3 mg/dL (0.15-1.2); Total Protein 6.6 g/dL (6.6-8.7)
[2020-12-08 12:51] LABS: Erythrocyte Sedimentation Rate 55 mm/hr (0-15)
== END 2020-12-08 11:03 | disposition home or self-care (01) ==
PROVIDERS: PCP Family Medicine; Visit Provider Internal Medicine
DX: M06.9 Rheumatoid arthritis, unspecified (principal); Z79.899 Other long term (current) drug therapy
CPT/HCPCS: 36415; 80053; 85025; 85651; 86140

== ENCOUNTER → 2020-12-09 08:53 | Outpatient (BNVA) | payer MEDICARE, SELFPAY | PROVIDERS: PCP Pediatrics; Visit Provider Internal Medicine | DX: M06.9 Rheumatoid arthritis, unspecified (principal); C50.911 Malignant neoplasm of unspecified site of right female breast | CPT/HCPCS: 99213 ==

== ENCOUNTER 2020-12-15 06:14 | Outpatient (RCR) | payer MEDICARE, SELFPAY ==
[2020-12-15 12:03] LABS: Basophils % 0.4 %; Eosinophils % 0.1 %; Hematocrit 38.4 % (37.0-47.0); Lymphocytes # 0.8 10^3/uL (0.8-4.8); Mean Corpuscular HGB Conc 31.3 g/dL (30.0-36.0); Mean Corpuscular Hemoglobin 28.8 pg (28.0-34.0); Mean Corpuscular Volume 92.3 fL (81-99); Mean Platelet Volume 9.9 fL (7.4-10.4); Monocytes # 0.5 10^3/uL (0.2-0.9); Monocytes % 5.1 %; Neutrophils # 8.82 10^3/uL (1.8-7.7); Nucleated Red Blood Cells % 0 %; Platelet Count 333 10^3/cmm (130-400); Red Blood Count 4.16 10^6/uL (4.1-5.3); Red Cell Distribution Width 16.7 % (12.1-15.1); White Blood Count 10.3 10^3/uL (4.0-10.0)
[2020-12-15 12:22] LABS: Alanine Aminotransferase 11 U/L (0-33); Albumin Level 3.6 g/dL (3.5-5.2); Alkaline Phosphatase 80 IU/L (35-105); Anion Gap 11.9 (5-19); Aspartate Amino Transferase 11 U/L (0-32); Blood Urea Nitrogen 12 mg/dL (8-23); Calcium 8.5 mg/dL (8.5-10.5); Carbon Dioxide 29 mmol/L (22-29); Chloride 104 mmol/L (98-107); Glomerular Filtration Rate 122.7 mL/min (90-130); Glucose 227 mg/dL (65-115); Osmolality Calculated 299 mOsm/kg (285-295); Potassium 3.9 mmol/L (3.5-5.1); Sodium 141 mmol/L (136-145); Total Bilirubin 0.3 mg/dL (0.15-1.2); Total Protein 6.6 g/dL (6.6-8.7)
--- NOTE | 2020-12-15 15:30 | ONC FU_ITS ---
Dr. Lyons follow up note Patient: Zulay Cedillo < Unit #: [id number]: 1950 Dicatated By: Aranza Lyons M.D.Date of Visit:Dec 15, 2020 Onc Med Follow-up/Prog Note History of Present Illness: Ms. Cedillo is a 70-year-old female with a history of abnormal mammogram. She underwent needle core biopsy of a right breast mass on April 08, 2020. The pathology showed poorly differentiated invasive ductal carcinoma, grade 3, prognostic profile???confirmed triple negative disease as ER/WV was 0% and HER-2/miles negative. Subsequently, Ms Cedillo was referred to Dr. Cagle. On April 27, 2020, Ms Cedillo underwent right breast lumpectomy with right axillary lymph node dissection. The final pathology report confirmed grade 3, poorly differentiated invasive ductal carcinoma with clear surgical margins and no lymphovascular invasion, invasive component was 3.3 x 3.1 x 2.8 cm, pT2. and 0 out of 22 lymph nodes showed metastatic disease. p N0. Port-A-Cath was placed in left chest wall in anticipation of adjuvant chemotherapy. Chest x-ray done prior to lumpectomy was unremarkable and an echocardiogram done on April 21, 2020 showed no abnormality and an ejection fraction 53%. Patient denies smoking or alcohol use. Patient denies any bony pain but she has history of rheumatoid arthritis with bilateral hand deformities and her past medical history also significant for hypothyroidism, hypertension, type 2 diabetes mellitus, hyperlipidemia and atrial fibrillation for which she is on Eliquis Ms Cedillo was referred to us for further recommendations for treatment of her breast cancer. She has been offered treatment with cyclophosphamide docetaxel with growth factor support. Ms Cedillo has node negative, triple negative, poorly differentiated, grade 3, invasive ductal carcinoma involving right breast, status post lumpectomy with clear surgical margins, no lymphovascular involvement. Stage IIIb disease. As per NCCN guidelines, she is a candidate for adjuvant chemotherapy, considering her age and comorbid condition and ejection fraction around 53%, we would consider adjuvant chemotherapy with Cytoxan 600 mg/m??? and docetaxel 75 mg/m??? every 3 weeks x 4 with Neulasta support.Which she completed on August 17, 2020 , Status post postlumpectomy radiation therapy completed on October 22, 2020 Came for follow-up, denies any specific complaints, no fever chills, no nausea or vomiting, no diarrhea constipation, no new bony pains, no weight loss, patient completed her postlumpectomy radiation therapy on October 22, 2020 Medications: Eliquis 1 Tablet (of 5 mg) Tablet Oral b.i.d., Euthyrox 1 Tablet (of 100 mcg) Oral daily, Gabapentin 1 Capsule (of 100 mg) Oral daily, Lisinopril 1 Tablet (of 20 mg) Oral daily, Lovastatin 1 Tablet (of 20 mg) Oral daily, metFORMIN HCl 1 Tablet (of 500 mg) Tablet Oral t.i.d., Metoprolol Tartrate 1 Tablet (of 100 mg) Tablet Oral b.i.d., predniSONE 1 Tablet (of 5 mg) Oral daily, Rinvoq 1 Tablet (of 15 mg) Tablet SR 24 HR Oral daily, Sertraline HCl 1 Tablet (of 100 mg) Oral daily, traMADol HCl 1 Tablet (of 50 mg) Oral PRN Allergies: No Known Allergies. Review of Systems: Review of Systems is not available for this patient. Vital Signs: Vitals are not available for this patient. Performance Status: 0 - Fully active, able to carry on all predisease activities without restrictions. (ECOG) Physical Examination: Respiratory - Lungs are clear to auscultation, Cardiovascular - Regular rate and rhythm of heart, Gastrointestinal - Soft, bowel sounds present, Extremities - No visible edema or rash, left hand shows deformity due to rheumatoid arthritis. Lab/Imaging: Test performed on Dec 08, 2020 11:25 Sodium 139 mmol/L Potassium 3.8 mmol/L Chloride 102 mmol/L CO2 27 mmol/L Anion Gap 13.8 BUN 15 mg/dL Creatinine 0.4 mg/dL Cr Clearance (Est) 180.63 mL/min eGFR 158.7 mL/min Glucose 161 mg/dL Osmolality - Calculated 292 mOsm/kg Calcium 8.5 mg/dL Protein, Total 6.6 g/dL Albumin 3.5 g/dL Globulin 3.1 g/dL Bilirubin, Total 0.3 mg/dL ALT (SGPT) 9 Units/L AST (SGOT) 11 Units/L Alkaline Phosphatase 89 IU/L WBC 8.3 10^3/uL RBC 4.33 10^6/uL HGB 12.3 g/dL HCT 39.6 % MCV 91.5 fl MCH 28.4 pg MCHC 31.1 g/dL RDW 16.7 % Platelet Count 315 10^3/uL MPV 9.9 fl Neutrophils 6.04 10^3/uL Lymphocytes 1.6 10^3/uL Monocytes 0.5 10^3/uL Eosinophils 0.0 10^3/uL Basophils 0.0 10^3/uL Neutrophil % 72.9 % Lymphocyte % 19.6 % Monocyte % 6.3 % Eosinophil % 0.4 % Basophils % 0.4 % NRBC 0.0 /100 WBC NRBC % 0 % Test performed on Aug 03, 2020 15:11 A/G Ratio 1.1 Absolute Value Test performed on Jul 22, 2020 11:00 Manual Segs % 53 % Manual Bands % 15.0 % Manual Lymphs % 17 % Atypical Lymphs % 3.0 % Total Cells Counted 100 Manual Monos % 8.0 % Manual Eos % 0 % Manual Basos % 0.0 % Metamyelocytes % 4.0 % CBC Slide Review Slide Review Perform Platelet Estimate Normal Manual Segs Abs 5.5 10/cmm Manual Bands Abs 1.6 10 3/cmm Manual Neutrophils Abs 7.1 10 3/cmm Manual Monocytes Abs 0.8 10 3/cmm Manual Eosinophils Abs 0.0 10 3/cmm Manual Basophils Abs 0.0 10 3/cmm Impression: Poorly differentiated invasive ductal carcinoma grade 3, triple negative status post right lumpectomy and axillary dissection done on April 27, 2020, final pathology report confirmed grade 3, poorly differentiated invasive ductal carcinoma, ER negative [place] negative HER-2/miles negative, invasive component 3.3 x 3.1 x 2.8 cm, with clear surgical margin, no lymphovascular invasion, pT2 0 out of 22 lymph nodes showed metastatic disease, pN 0 Stage IIb, (grade 3, triple negative T2 ,N0) s/p adjuvant chemotherapy with cyclophosphamide docetaxel. She also had Neulasta support to prevent chemotherapy-induced neutropenia. She started her first cycle on 06/03/2020.And completed recommended 4 cycles of Cytoxan/docetaxel on August 17, 2020 Atrial fibrillation, on Eliquis Type 2 diabetes mellitus Rheumatoid arthritis with deformity of bilateral hands Hypothyroidism, status post thyroid surgery Hypertension Plan: Discussed with patient regarding her labs white blood count 10.3 hemoglobin 12 hematocrit 38.4 platelets 333,000 CMP within normal limits, except glucose 227 Clinically, patient doing well with no new signs symptom suggestive of recurrence of disease, patient has completed her recommended post lumpectomy radiation therapy to her right breast., Overall feeling well her follow-up lab work-up is within normal range except mild leukocytosis, could be due to chronic inflammation/rheumatoid arthritis, as per patient her pyrometer operator is considering intervention,patient denies any fever chills or signs symptom suggestive of infection. We will monitor, she will return to clinic in 3 months with CBC CMP in the meantime she will continue with monthly port maintenance at [facility] in [place] Signed By: Aranza Lyons M.D. <<Signature on File>>
== END 2020-12-15 23:59 | disposition home or self-care (01) ==
LOC: ONCMED 06:14
PROVIDERS: PCP Pediatrics; Visit Provider Internal Medicine Hematology & Oncology
DX: Z08 Encounter for follow-up examination after completed treatment for malignant neoplasm (principal); Z85.3 Personal history of malignant neoplasm of breast; I48.91 Unspecified atrial fibrillation; Z79.01 Long term (current) use of anticoagulants; E11.9 Type 2 diabetes mellitus without complications; M06.9 Rheumatoid arthritis, unspecified; M21.942 Unspecified acquired deformity of hand, left hand; M21.941 Unspecified acquired deformity of hand, right hand; E03.9 Hypothyroidism, unspecified; I10 Essential (primary) hypertension; Z79.899 Other long term (current) drug therapy; Z90.11 Acquired absence of right breast and nipple; Z92.3 Personal history of irradiation
CPT/HCPCS: 36591; 80053; 85025; 99214

== ENCOUNTER → 2021-01-05 10:37 | Outpatient (BNVA) | payer MEDICARE, SELFPAY | PROVIDERS: PCP Pediatrics; Visit Provider Internal Medicine | DX: M06.9 Rheumatoid arthritis, unspecified (principal); C50.919 Malignant neoplasm of unspecified site of unspecified female breast; Z11.59 Encounter for screening for other viral diseases | CPT/HCPCS: 99214 ==

== ENCOUNTER 2021-03-17 12:25 | Outpatient (CLI) | payer MEDICARE, SELFPAY ==
[2021-03-17 13:44] LABS: Basophils # 0.1 10^3/uL (0.0-0.1); Basophils % 0.6 %; Eosinophils % 0.2 %; Hematocrit 42.7 % (37.0-47.0); Hemoglobin 13.5 g/dL (11.5-15.3); Lymphocytes # 0.8 10^3/uL (0.8-4.8); Mean Corpuscular HGB Conc 31.6 g/dL (30.0-36.0); Mean Corpuscular Hemoglobin 30.1 pg (28.0-34.0); Mean Corpuscular Volume 95.3 fl (81-99); Mean Platelet Volume 10.3 fL (7.4-10.4); Monocytes # 0.5 10^3/uL (0.2-0.9); Monocytes % 5.7 %; Neutrophils # 7.39 10^3/uL (1.8-7.7); Neutrophils % 84.2 %; Nucleated Red Blood Cells % 0 %; Platelet Count 264 10^3/cmm (130-400); Red Blood Count 4.48 10^6/uL (4.1-5.3); Red Cell Distribution Width 15.4 % (12.1-15.1); White Blood Count 8.8 10^3/uL (4.0-10.0)
[2021-03-17 14:11] LABS: Alanine Aminotransferase 14 U/L (0-33); Albumin Level 3.5 g/dL (3.5-5.2); Alkaline Phosphatase 80 IU/L (35-105); Anion Gap 15.9 (5-19); Aspartate Amino Transferase 12 U/L (0-32); Blood Urea Nitrogen 13 mg/dL (8-23); Calcium 8.9 mg/dL (8.5-10.5); Carbon Dioxide 25 mmol/L (22-29); Chloride 102 mmol/L (98-107); Globulin 2.9 g/dL (1.3-4.6); Glomerular Filtration Rate 221.2 mL/min (90-130); Glucose 220 mg/dL (65-115); Osmolality Calculated 295 mOsm/kg (285-295); Potassium 3.9 mmol/L (3.5-5.1); Sodium 139 mmol/L (136-145); Total Bilirubin 0.3 mg/dL (0.15-1.2); Total Protein 6.4 g/dL (6.6-8.7)
--- NOTE | 2021-03-17 14:51 | ONC FU_ITS ---
Dr. Lyons follow up note Patient: Zulay Cedillo Unit #: [id number]: 1950 Dicatated By: Aranza Lyons M.D.Date of Visit:Mar 17, 2021 Onc Med Follow-up/Prog Note History of Present Illness: Ms. Cedillo is a 70-year-old female with a history of abnormal mammogram. She underwent needle core biopsy of a right breast mass on April 08, 2020. The pathology showed poorly differentiated invasive ductal carcinoma, grade 3, prognostic profile???confirmed triple negative disease as ER/[place] was 0% and HER-2/miles negative. Subsequently, Ms Cedillo was referred to Dr. Cagle. On April 27, 2020, Ms Cedillo underwent right breast lumpectomy with right axillary lymph node dissection. The final pathology report confirmed grade 3, poorly differentiated invasive ductal carcinoma with clear surgical margins and no lymphovascular invasion, invasive component was 3.3 x 3.1 x 2.8 cm, pT2. and 0 out of 22 lymph nodes showed metastatic disease. p N0. Port-A-Cath was placed in left chest wall in anticipation of adjuvant chemotherapy. Chest x-ray done prior to lumpectomy was unremarkable and an echocardiogram done on April 21, 2020 showed no abnormality and an ejection fraction 53%. Patient denies smoking or alcohol use. Patient denies any bony pain but she has history of rheumatoid arthritis with bilateral hand deformities and her past medical history also significant for hypothyroidism, hypertension, type 2 diabetes mellitus, hyperlipidemia and atrial fibrillation for which she is on Eliquis Ms Cedillo was referred to us for further recommendations for treatment of her breast cancer. She has been offered treatment with cyclophosphamide docetaxel with growth factor support. Ms Cedillo has node negative, triple negative, poorly differentiated, grade 3, invasive ductal carcinoma involving right breast, status post lumpectomy with clear surgical margins, no lymphovascular involvement. Stage IIIb disease. As per NCCN guidelines, she is a candidate for adjuvant chemotherapy, considering her age and comorbid condition and ejection fraction around 53%, we would consider adjuvant chemotherapy with Cytoxan 600 mg/m??? and docetaxel 75 mg/m??? every 3 weeks x 4 with Neulasta support.Which she completed on August 17, 2020 , Status post postlumpectomy radiation therapy completed on October 22, 2020 Came for follow-up, denies any specific complaints, no fever chills, no nausea or vomiting, no diarrhea constipation, no new bony pains, but chronic arthritis pain involving bilateral hand causing deformity and bilateral knee, as per patient prednisone prescribed by Miriam Moore nursing practitioner did help her but patient is also seen configuration specialist on regular basis. And she is getting her port flush every month at [facility] in [facility] Medications: Eliquis 1 Tablet (of 5 mg) Tablet Oral b.i.d., Euthyrox 1 Tablet (of 100 mcg) Oral daily, Gabapentin 1 Capsule (of 100 mg) Oral daily, Lisinopril 1 Tablet (of 20 mg) Oral daily, Lovastatin 1 Tablet (of 20 mg) Oral daily, metFORMIN HCl 1 Tablet (of 500 mg) Tablet Oral t.i.d., Metoprolol Tartrate 1 Tablet (of 100 mg) Tablet Oral b.i.d., predniSONE 1 Tablet (of 5 mg) Oral daily, Rinvoq 1 Tablet (of 15 mg) Tablet SR 24 HR Oral daily, Sertraline HCl 1 Tablet (of 100 mg) Oral daily, traMADol HCl 1 Tablet (of 50 mg) Oral PRN Allergies: No Known Allergies. Review of Systems: Review of Systems is not available for this patient. Vital Signs: Performed on Mar 17, 2021 14:28 Height - 61.00 in Weight - 185.8 lbs (HIGH) BSA - 1.83 sq.m BMI - 35.11 (HIGH) Temperature - 97.7 F (LOW) Pulse - 93 /min Respiration - 18 /min BP - 126/80 mm(hg) O2 Sat - 95 % (LOW) Pain - 6 Fatigue - 5 Performance Status: 0 - Fully active, able to carry on all predisease activities without restrictions. (ECOG) Physical Examination: Respiratory - Lungs are clear to auscultation, Cardiovascular - Regular rate and rhythm of heart, Gastrointestinal - Soft, bowel sounds present, Extremities - No visible edema. Lab/Imaging: Test performed on Dec 08, 2020 11:25 Sodium 139 mmol/L Potassium 3.8 mmol/L Chloride 102 mmol/L CO2 27 mmol/L Anion Gap 13.8 BUN 15 mg/dL Creatinine 0.4 mg/dL Cr Clearance (Est) 180.63 mL/min eGFR 158.7 mL/min Glucose 161 mg/dL Osmolality - Calculated 292 mOsm/kg Calcium 8.5 mg/dL Protein, Total 6.6 g/dL Albumin 3.5 g/dL Globulin 3.1 g/dL Bilirubin, Total 0.3 mg/dL ALT (SGPT) 9 Units/L AST (SGOT) 11 Units/L Alkaline Phosphatase 89 IU/L WBC 8.3 10^3/uL RBC 4.33 10^6/uL HGB 12.3 g/dL HCT 39.6 % MCV 91.5 fl MCH 28.4 pg MCHC 31.1 g/dL RDW 16.7 % Platelet Count 315 10^3/uL MPV 9.9 fl Neutrophils 6.04 10^3/uL Lymphocytes 1.6 10^3/uL Monocytes 0.5 10^3/uL Eosinophils 0.0 10^3/uL Basophils 0.0 10^3/uL Neutrophil % 72.9 % Lymphocyte % 19.6 % Monocyte % 6.3 % Eosinophil % 0.4 % Basophils % 0.4 % NRBC 0.0 /100 WBC NRBC % 0 % Impression: Poorly differentiated invasive ductal carcinoma grade 3, triple negative status post right lumpectomy and axillary dissection done on April 27, 2020, final pathology report confirmed grade 3, poorly differentiated invasive ductal carcinoma, ER negative [place] negative HER-2/miles negative, invasive component 3.3 x 3.1 x 2.8 cm, with clear surgical margin, no lymphovascular invasion, pT2 0 out of 22 lymph nodes showed metastatic disease, pN 0 Stage IIb, (grade 3, triple negative T2 ,N0) s/p adjuvant chemotherapy with cyclophosphamide docetaxel. She also had Neulasta support to prevent chemotherapy-induced neutropenia. She started her first cycle on 06/03/2020.And completed recommended 4 cycles of Cytoxan/docetaxel on August 17, 2020 Atrial fibrillation, on Eliquis Type 2 diabetes mellitus Rheumatoid arthritis with deformity of bilateral hands Hypothyroidism, status post thyroid surgery Hypertension Plan: Discussed with patient regarding her labs white blood count 8.8 hemoglobin 13.5 hematocrit 42.7 platelets 264,000 CMP within normal limits except glucose 220 Clinically, patient is doing well with no new signs symptoms just of recurrence of disease, her lab work-up is within normal range except hyperglycemia, patient is on prednisone 20 mg p.o. daily for her chronic arthritis, patient was advised to taper off her prednisone dose and discuss with her configuration specialist regarding appropriate antiarthritis therapy and need to contact her configuration specialist for prescription for prednisone or steroids if needed in the future. We will follow her from oncology point of view. Patient will continue to get her monthly port maintenance at [facility] in [facility] and we will see her back in 4 months with CBC CMP and follow-up mammogram which is already scheduled for April 2021 Signed By: Aranza Lyons M.D. <<Signature on File>>
== END 2021-03-17 12:26 | disposition home or self-care (01) ==
LOC: ONCMED 12:27
PROVIDERS: PCP Pediatrics; Visit Provider Internal Medicine Hematology & Oncology
DX: C50.911 Malignant neoplasm of unspecified site of right female breast (principal); Z17.1 Estrogen receptor negative status [ER-]; M13.80 Other specified arthritis, unspecified site; I48.91 Unspecified atrial fibrillation; E11.9 Type 2 diabetes mellitus without complications; M06.9 Rheumatoid arthritis, unspecified; E03.9 Hypothyroidism, unspecified; I10 Essential (primary) hypertension; Z79.01 Long term (current) use of anticoagulants; Z79.52 Long term (current) use of systemic steroids; Z79.899 Other long term (current) drug therapy; Z79.84 Long term (current) use of oral hypoglycemic drugs
CPT/HCPCS: 36591; 80053; 85025; 99214

== ENCOUNTER → 2021-03-31 10:18 | Outpatient (BNVA) | payer MEDICARE, SELFPAY | PROVIDERS: PCP Pediatrics; Visit Provider Internal Medicine | DX: M06.9 Rheumatoid arthritis, unspecified (principal); C50.211 Malignant neoplasm of upper-inner quadrant of right female breast | CPT/HCPCS: 99214 ==

== ENCOUNTER → 2021-05-30 09:47 | Outpatient (BNVA) | payer MEDICARE, SELFPAY | PROVIDERS: PCP Pediatrics; Visit Provider Internal Medicine | DX: M06.9 Rheumatoid arthritis, unspecified (principal); C50.211 Malignant neoplasm of upper-inner quadrant of right female breast; M54.9 Dorsalgia, unspecified; Z87.891 Personal history of nicotine dependence | CPT/HCPCS: 99214 ==

== ENCOUNTER 2021-07-27 09:52 | Outpatient (CLI) | payer MEDICARE, SELFPAY ==
[2021-07-27 10:46] LABS: Basophils # 0.1 10^3/uL (0.0-0.1); Basophils % 0.8 %; Eosinophils # 0.1 10^3/uL (0.0-0.8); Eosinophils % 1.1 %; Hematocrit 42.3 % (37.0-47.0); Hemoglobin 13.4 g/dL (11.5-15.3); Lymphocytes # 1.1 10^3/uL (0.8-4.8); Lymphocytes % 17.2 %; Mean Corpuscular HGB Conc 31.7 g/dL (30.0-36.0); Mean Corpuscular Hemoglobin 29.1 pg (28.0-34.0); Mean Corpuscular Volume 91.8 fl (81-99); Mean Platelet Volume 10.6 fL (7.4-10.4); Monocytes # 0.6 10^3/uL (0.2-0.9); Monocytes % 9.7 %; Neutrophils # 4.56 10^3/uL (1.8-7.7); Nucleated Red Blood Cells % 0 %; Platelet Count 260 10^3/cmm (130-400); Red Blood Count 4.61 10^6/uL (4.1-5.3); Red Cell Distribution Width 14.7 % (12.1-15.1); White Blood Count 6.4 10^3/uL (4.0-10.0)
[2021-07-27 11:12] LABS: Alanine Aminotransferase 15 U/L (0-33); Albumin Level 3.9 g/dL (3.5-5.2); Alkaline Phosphatase 140 IU/L (35-105); Anion Gap 16.9 (5-19); Aspartate Amino Transferase 18 U/L (0-32); Blood Urea Nitrogen 13 mg/dL (8-23); Calcium 9.1 mg/dL (8.5-10.5); Carbon Dioxide 22 mmol/L (22-29); Chloride 101 mmol/L (98-107); Globulin 2.8 g/dL (1.3-4.6); Glomerular Filtration Rate 158.7 mL/min (90-130); Glucose 195 mg/dL (65-115); Osmolality Calculated 287 mOsm/kg (285-295); Potassium 3.9 mmol/L (3.5-5.1); Sodium 136 mmol/L (136-145); Total Bilirubin 0.3 mg/dL (0.15-1.2); Total Protein 6.7 g/dL (6.6-8.7)
[2021-07-27 12:47] LABS: Erythrocyte Sedimentation Rate 56 mm/hr (0-15)
== END 2021-07-27 09:53 | disposition home or self-care (01) ==
PROVIDERS: Internal Medicine; Nurse Practitioner Family; PCP Pediatrics; Visit Provider Internal Medicine Hematology & Oncology
DX: C50.811 Malignant neoplasm of overlapping sites of right female breast (principal); Z17.1 Estrogen receptor negative status [ER-]; Z90.11 Acquired absence of right breast and nipple; I48.91 Unspecified atrial fibrillation; Z79.01 Long term (current) use of anticoagulants; E11.9 Type 2 diabetes mellitus without complications; Z79.4 Long term (current) use of insulin; M06.9 Rheumatoid arthritis, unspecified; M21.942 Unspecified acquired deformity of hand, left hand; M21.941 Unspecified acquired deformity of hand, right hand; E03.9 Hypothyroidism, unspecified; I10 Essential (primary) hypertension; Z79.899 Other long term (current) drug therapy; Z92.21 Personal history of antineoplastic chemotherapy; Z92.25 Personal history of immunosuppression therapy
CPT/HCPCS: 36591; 80053; 85025; 85651; 86140; 99215

== ENCOUNTER → 2021-08-02 08:32 | Outpatient (BNVA) | payer MEDICARE, SELFPAY | PROVIDERS: PCP Pediatrics; Visit Provider Internal Medicine | DX: M06.9 Rheumatoid arthritis, unspecified (principal); C50.919 Malignant neoplasm of unspecified site of unspecified female breast | CPT/HCPCS: 96372; 99214; J1030 ==

== ENCOUNTER 2021-09-01 10:25 | Outpatient (CLI) | payer MEDICARE, SELFPAY | END 2021-09-01 10:26 | disposition home or self-care (01) | LOC: ONCMED 10:31 | PROVIDERS: PCP Pediatrics; Visit Provider Internal Medicine Hematology & Oncology | DX: Z45.2 Encounter for adjustment and management of vascular access device (principal) | CPT/HCPCS: 96523 ==

== ENCOUNTER → 2021-10-19 09:10 | Outpatient (BNVA) | payer MEDICARE, SELFPAY | PROVIDERS: PCP Pediatrics; Visit Provider Internal Medicine | DX: M06.9 Rheumatoid arthritis, unspecified (principal); C50.919 Malignant neoplasm of unspecified site of unspecified female breast; M54.9 Dorsalgia, unspecified; Z79.899 Other long term (current) drug therapy | CPT/HCPCS: 96372; 99214; J1100 ==

== ENCOUNTER 2022-02-14 13:02 | Oncology outpatient (recurring) (ONCR) | payer MEDICARE, SELFPAY ==
[2022-02-14 13:32] VITALS: BMI 32.5
[2022-02-14 14:04] LABS: Basophils % 0.5 %; Eosinophils % 0.3 %; Hematocrit 46.1 % (37.0-47.0); Hemoglobin 14.7 g/dL (11.5-15.3); Lymphocytes % 14.2 %; Mean Corpuscular HGB Conc 31.9 g/dL (30.0-36.0); Mean Corpuscular Hemoglobin 30.4 pg (28.0-34.0); Mean Corpuscular Volume 95.2 fl (81-99); Monocytes # 0.4 10^3/uL (0.2-0.9); Monocytes % 5.6 %; Neutrophils # 5.79 10^3/uL (1.8-7.7); Nucleated Red Blood Cells % 0 %; Platelet Count 268 10^3/cmm (130-400); Red Blood Count 4.84 10^6/uL (4.1-5.3); Red Cell Distribution Width 14.8 % (12.1-15.1); White Blood Count 7.3 10^3/uL (4.0-10.0)
[2022-02-14 14:25] LABS: Alanine Aminotransferase 22 U/L (0-33); Alkaline Phosphatase 109 U/L (35-105); Aspartate Amino Transferase 18 U/L (0-32); Blood Urea Nitrogen 14 mg/dL (8-23); Calcium 8.8 mg/dL (8.5-10.5); Carbon Dioxide 24 mmol/L (22-29); Chloride 101 mmol/L (98-107); Glomerular Filtration Rate 158.3 mL/min (90-130); Glucose 303 mg/dL (65-115); Osmolality Calculated 300 mOsm/kg (285-295); Sodium 139 mmol/L (136-145); Total Bilirubin 0.6 mg/dL (0.15-1.2)
[2022-02-14 14:26] LABS: Anion Gap 18.6 (5-19); Potassium 4.6 mmol/L (3.5-5.1)
== END 2022-02-15 23:59 | disposition home or self-care (01) ==
PROVIDERS: Nurse Practitioner; PCP Pediatrics; Visit Provider Internal Medicine Hematology & Oncology
DX: C50.211 Malignant neoplasm of upper-inner quadrant of right female breast (principal); Z17.1 Estrogen receptor negative status [ER-]; M06.9 Rheumatoid arthritis, unspecified; Z79.52 Long term (current) use of systemic steroids; M21.942 Unspecified acquired deformity of hand, left hand; M21.941 Unspecified acquired deformity of hand, right hand; E03.9 Hypothyroidism, unspecified; I10 Essential (primary) hypertension; E11.65 Type 2 diabetes mellitus with hyperglycemia; Z79.4 Long term (current) use of insulin; I48.20 Chronic atrial fibrillation, unspecified; Z79.01 Long term (current) use of anticoagulants; Z92.21 Personal history of antineoplastic chemotherapy; Z92.25 Personal history of immunosuppression therapy
CPT/HCPCS: 36591; 80053; 85025; 99214

== ENCOUNTER 2022-03-14 13:13 | Oncology outpatient (recurring) (ONCR) | payer MEDICARE, SELFPAY ==
[2022-03-14 13:46] VITALS: BP 137/90; PULSE 55; RESP 18; TEMP 36.7; O2SAT 98
== END 2022-03-17 23:59 | disposition home or self-care (01) ==
LOC: ONCMED 13:13
PROVIDERS: PCP Pediatrics; Visit Provider Internal Medicine Hematology & Oncology
DX: Z45.2 Encounter for adjustment and management of vascular access device (principal)
CPT/HCPCS: 96523

== ENCOUNTER → 2022-07-11 11:18 | Outpatient (BNVA) | payer MEDICARE, SELFPAY | PROVIDERS: PCP Pediatrics; Visit Provider Internal Medicine | DX: M06.9 Rheumatoid arthritis, unspecified (principal) | CPT/HCPCS: 36415; 72100; 73521; 73562; 80053; 85025; 85651; 86140; 99214 ==

== ENCOUNTER → 2022-07-27 09:35 | Outpatient (BNVA) | payer MEDICARE, SELFPAY | PROVIDERS: PCP Pediatrics; Visit Provider Anesthesiology Pain Medicine | DX: M54.16 Radiculopathy, lumbar region (principal); M47.816 Spondylosis without myelopathy or radiculopathy, lumbar region; M51.36 Other intervertebral disc degeneration, lumbar region | CPT/HCPCS: 99204 ==

== ENCOUNTER 2022-08-02 12:52 | Oncology outpatient (recurring) (ONCR) | payer MEDICARE, SELFPAY ==
[2022-08-02 13:50] LABS: Basophils % 0.6 %; Eosinophils % 0.6 %; Hematocrit 40.9 % (37.0-47.0); Hemoglobin 13.1 g/dL (11.5-15.3); Lymphocytes # 1.5 10^3/uL (0.8-4.8); Lymphocytes % 47.2 %; Mean Corpuscular Hemoglobin 30.1 pg (28.0-34.0); Mean Platelet Volume 10.8 fL (7.4-10.4); Monocytes # 0.5 10^3/uL (0.2-0.9); Monocytes % 16.1 %; Neutrophils # 1.14 10^3/uL (1.8-7.7); Neutrophils % 35.5 %; Nucleated Red Blood Cells % 0 %; Platelet Count 258 10^3/cmm (130-400); Red Blood Count 4.35 10^6/uL (4.1-5.3); Red Cell Distribution Width 14.9 % (12.1-15.1); White Blood Count 3.2 10^3/uL (4.0-10.0)
[2022-08-02 13:58] LABS: Alanine Aminotransferase 23 U/L (0-33); Alkaline Phosphatase 132 U/L (35-105); Aspartate Amino Transferase 26 U/L (0-32); Blood Urea Nitrogen 10 mg/dL (8-23); Calcium 8.8 mg/dL (8.5-10.5); Carbon Dioxide 25 mmol/L (22-29); Chloride 104 mmol/L (98-107); Glomerular Filtration Rate 158.3 mL/min (90-130); Glucose 113 mg/dL (65-115); Osmolality Calculated 292 mOsm/kg (285-295); Sodium 141 mmol/L (136-145); Total Bilirubin 0.4 mg/dL (0.15-1.2)
== END 2022-08-15 23:59 | disposition home or self-care (01) ==
PROVIDERS: PCP Pediatrics; Visit Provider Internal Medicine Hematology & Oncology
DX: C50.211 Malignant neoplasm of upper-inner quadrant of right female breast (principal); Z17.1 Estrogen receptor negative status [ER-]; Z45.2 Encounter for adjustment and management of vascular access device; Z92.3 Personal history of irradiation; Z92.21 Personal history of antineoplastic chemotherapy; M81.0 Age-related osteoporosis without current pathological fracture; Z95.828 Presence of other vascular implants and grafts
CPT/HCPCS: 36591; 80053; 85025; 99214

== ENCOUNTER 2022-08-15 06:00 | Outpatient (RCR) | payer MEDICARE, SELFPAY | END 2022-08-15 23:59 | disposition home or self-care (01) | LOC: MPT 06:00 | PROVIDERS: PCP Pediatrics; Visit Provider Anesthesiology Pain Medicine | DX: M54.16 Radiculopathy, lumbar region (principal) | CPT/HCPCS: 97110; 97162 ==

== ENCOUNTER 2022-08-16 06:00 | Outpatient (RCR) | payer MEDICARE, SELFPAY | END 2022-09-15 23:59 | disposition home or self-care (01) | LOC: MPT 06:00 | PROVIDERS: PCP Pediatrics; Visit Provider Anesthesiology Pain Medicine | DX: M54.16 Radiculopathy, lumbar region (principal) | CPT/HCPCS: 97110; 97140; G0283 ==

== ENCOUNTER 2022-08-24 07:53 | Outpatient (CLI) | payer MEDICARE, SELFPAY ==
--- NOTE | 2022-08-24 08:00 | MR_ITS ---
WS: [id number] MRI LUMBAR SPINE NONCONTRAST HISTORY: M54.16 - Radiculopathy, lumbar region COMPARISON: 07/11/2022 radiographs TECHNIQUE: Sagittal and axial multisequence imaging is submitted. Mild increase in thoracic kyphosis. Mild concavity involving the superior endplate of T12 without ret ropulsion. Mild straightening of the normal lumbar lordosis. Complete obliteration of the L5-S1 disc. Suspect ca lcification across the disc level. Marked hypertrophic bone formation and osteophytosis. Moderate disc space narrowing at L3-4 and L4-5. Conus terminates normally at L1-2 disc level. T12: Extruded disc extends cephalad posterior to the RIGHT lateral T12 vertebral body. Favor the pare nt disc is T12-L1. No cord compression. L1-L2: Moderate size central disc protrusion extends cephalad from the disc level with contact and de formity the ventral thecal sac. There is additional annular disc bulging causing encroachment upon th e subarticular recesses and foramina. Moderate RIGHT and mild LEFT foraminal stenosis. Moderate centr al and bilateral subarticular recess stenosis. L2-L3: Mild annular disc bulging. Mild encroachment into the subarticular recesses. Very mild foramin al narrowing. L3-L4: Marked annular disc bulging and osteophytic ridging with ligamentum flavum and facet arthritis . Moderate central, bilateral subarticular recess and foraminal stenosis. Slightly greater stenosis R IGHT foramen. L4-L5: Annular disc bulging and osteophytic ridging. RIGHT subarticular recess and foraminal disc ost eophyte. Ligamentum flavum and facet arthritis. Combination of findings resulting in severe central, bilateral subarticular recess and moderate foraminal stenosis. There is significant contact on the tr aversing L5 nerve roots. L5-S1: Marked osteophytic ridging. Osteophytic burden encroaches upon the ventral thecal sac and into the foramina. Severe LEFT foraminal stenosis predominantly due to hypertrophic bone with osteophytes and extending into the LEFT subarticular recess and displacing the LEFT S1 nerve root. Mild stenosis RIGHT foramen. RIGHT renal cysts. MR/MR lumbar spine wo con* [id number] IMPRESSION: 1. Marked hypertrophic osteophytic ridging at L5-S1 with complete obliteration of the disc space. Hypertrophic osteophytes extend into the LEFT lateral reces s and foramina with severe stenosis. There is significant displacement of the L EFT S1 nerve root and encroachment upon the exiting LEFT L5 nerve root. 2. Mild RIGHT foraminal stenosis at L5-S1. 3. Moderate central, bilateral subarticular recess and foraminal stenosis at L 3-4. 4. Severe central, bilateral subarticular recess and moderate foraminal stenos is at L4-5. Significant contact on the traversing L5 nerve roots. 5. Extruded RIGHT disc posterior to T12. Favor the parent disc is T12-L1. 6. Moderate central disc protrusion at L1-2 also extending cephalad from the d isc level. Encroachment into the subarticular recesses and foramina at L1-2. Mo derate central and bilateral subarticular recess stenosis. 7. Remote T12 mild compression fracture.
== END 2022-08-24 07:54 | disposition home or self-care (01) ==
LOC: RAD 07:56
PROVIDERS: PCP Pediatrics; Visit Provider Anesthesiology Pain Medicine
DX: M54.16 Radiculopathy, lumbar region (principal); M25.78 Osteophyte, vertebrae; M48.07 Spinal stenosis, lumbosacral region; M48.061 Spinal stenosis, lumbar region without neurogenic claudication; M51.24 Other intervertebral disc displacement, thoracic region; M51.26 Other intervertebral disc displacement, lumbar region; M48.54XA Collapsed vertebra, not elsewhere classified, thoracic region, initial encounter for fracture; M47.816 Spondylosis without myelopathy or radiculopathy, lumbar region; M51.36 Other intervertebral disc degeneration, lumbar region
CPT/HCPCS: 72148; 99214

== ENCOUNTER → 2022-09-13 14:43 | Outpatient (BNVA) | payer MEDICARE, SELFPAY | PROVIDERS: PCP Pediatrics; Visit Provider Anesthesiology Pain Medicine | DX: M54.16 Radiculopathy, lumbar region (principal) | CPT/HCPCS: 64483; 64484; J1100; J3490 ==

== ENCOUNTER 2022-09-16 06:00 | Outpatient (RCR) | payer MEDICARE, SELFPAY | END 2022-10-15 23:59 | disposition home or self-care (01) | LOC: MPT 06:00 | PROVIDERS: PCP Pediatrics; Visit Provider Anesthesiology Pain Medicine | DX: M54.16 Radiculopathy, lumbar region (principal) | CPT/HCPCS: 97110; 97140; G0283 ==

== ENCOUNTER → 2022-09-27 12:34 | Outpatient (BNVA) | payer MEDICARE, SELFPAY | PROVIDERS: PCP Pediatrics; Visit Provider Internal Medicine | DX: M06.9 Rheumatoid arthritis, unspecified (principal); C50.919 Malignant neoplasm of unspecified site of unspecified female breast; M54.9 Dorsalgia, unspecified; M81.0 Age-related osteoporosis without current pathological fracture | CPT/HCPCS: 36415; 80053; 86140; 99214 ==

== ENCOUNTER 2022-10-16 13:20 | Oncology outpatient (recurring) (ONCR) | payer MEDICARE, SELFPAY ==
[2022-10-16 14:23] VITALS: BP 160/83; PULSE 91; RESP 18; TEMP 36.6; O2SAT 98
== END 2022-11-15 23:59 | disposition home or self-care (01) ==
PROVIDERS: PCP Pediatrics; Visit Provider Internal Medicine Hematology & Oncology
DX: Z45.2 Encounter for adjustment and management of vascular access device (principal)
CPT/HCPCS: 96523; J1642

== ENCOUNTER → 2023-01-31 14:29 | Outpatient (BNVA) | payer MEDICARE, SELFPAY | PROVIDERS: PCP Pediatrics; Visit Provider Internal Medicine | DX: M06.9 Rheumatoid arthritis, unspecified (principal); C50.919 Malignant neoplasm of unspecified site of unspecified female breast; M81.0 Age-related osteoporosis without current pathological fracture; Z79.899 Other long term (current) drug therapy | CPT/HCPCS: 99214 ==

== ENCOUNTER 2023-02-01 10:15 | Oncology outpatient (recurring) (ONCR) | payer MEDICARE, MEDICAID, SELFPAY ==
[2023-02-01 10:24] VITALS: BP 158/98; PULSE 87; RESP 18; TEMP 37.1; O2SAT 97; BMI 29.2
[2023-02-01 10:38] LABS: Basophils # 0.1 10^3/uL (0.0-0.1); Basophils % 1.2 %; Eosinophils # 0.1 10^3/uL (0.0-0.8); Eosinophils % 1.6 %; Hematocrit 39.1 % (37.0-47.0); Hemoglobin 12.3 g/dL (11.5-15.3); Lymphocytes # 1.5 10^3/uL (0.8-4.8); Lymphocytes % 33.6 %; Mean Corpuscular HGB Conc 31.5 g/dL (30.0-36.0); Mean Corpuscular Hemoglobin 28.8 pg (28.0-34.0); Mean Corpuscular Volume 91.6 fl (81-99); Mean Platelet Volume 9.6 fL (7.4-10.4); Monocytes # 0.5 10^3/uL (0.2-0.9); Monocytes % 11.6 %; Neutrophils # 2.23 10^3/uL (1.8-7.7); Neutrophils % 51.8 %; Nucleated Red Blood Cells % 0 %; Platelet Count 278 10^3/cmm (130-400); Red Blood Count 4.27 10^6/uL (4.1-5.3); Red Cell Distribution Width 16.7 % (12.1-15.1); White Blood Count 4.3 10^3/uL (4.0-10.0)
[2023-02-01 11:01] LABS: Alanine Aminotransferase 17 U/L (0-33); Albumin Level 3.5 g/dL (3.5-5.2); Alkaline Phosphatase 123 U/L (35-105); Anion Gap 14.2 (5-19); Aspartate Amino Transferase 18 U/L (0-32); Blood Urea Nitrogen 8 mg/dL (8-23); Calcium 8.4 mg/dL (8.5-10.5); Carbon Dioxide 27 mmol/L (22-29); Chloride 102 mmol/L (98-107); Globulin 3.6 g/dL (1.3-4.6); Glomerular Filtration Rate 157.8 mL/min (90-130); Glucose 101 mg/dL (65-115); Osmolality Calculated 286 mOsm/kg (285-295); Potassium 4.2 mmol/L (3.5-5.1); Sodium 139 mmol/L (136-145); Total Bilirubin 0.3 mg/dL (0.15-1.2); Total Protein 7.1 g/dL (6.6-8.7)
== END 2023-02-15 23:59 | disposition home or self-care (01) ==
PROVIDERS: Nurse Practitioner Family; PCP Pediatrics; Visit Provider Internal Medicine Hematology & Oncology
DX: C50.211 Malignant neoplasm of upper-inner quadrant of right female breast (principal); Z45.2 Encounter for adjustment and management of vascular access device; Z17.1 Estrogen receptor negative status [ER-]; Z92.21 Personal history of antineoplastic chemotherapy; M81.0 Age-related osteoporosis without current pathological fracture; M06.9 Rheumatoid arthritis, unspecified; Z92.3 Personal history of irradiation
CPT/HCPCS: 36591; 80053; 85025; 99214; J1642

== ENCOUNTER 2023-03-08 13:54 | Oncology outpatient (recurring) (ONCR) | payer MEDICARE, MEDICAID, SELFPAY ==
[2023-03-08 14:15] VITALS: BP 103/75; PULSE 83; RESP 16; TEMP 37; O2SAT 96
== END 2023-03-17 23:59 | disposition home or self-care (01) ==
LOC: ONCMED 13:54
PROVIDERS: PCP Pediatrics; Visit Provider Internal Medicine Hematology & Oncology
DX: Z45.2 Encounter for adjustment and management of vascular access device (principal)
CPT/HCPCS: 96523; J1642

== ENCOUNTER 2023-05-14 12:48 | Oncology outpatient (recurring) (ONCR) | payer MEDICARE, MEDICAID, SELFPAY | END 2023-05-17 23:59 | disposition home or self-care (01) | PROVIDERS: PCP Pediatrics; Visit Provider Internal Medicine Hematology & Oncology | DX: Z45.2 Encounter for adjustment and management of vascular access device (principal); Z95.828 Presence of other vascular implants and grafts; Z79.899 Other long term (current) drug therapy; C50.211 Malignant neoplasm of upper-inner quadrant of right female breast | CPT/HCPCS: 99214 ==

== ENCOUNTER → 2023-05-18 10:12 | Outpatient (BNVA) | payer MEDICARE, MEDICAID, SELFPAY | PROVIDERS: PCP Pediatrics; Visit Provider Internal Medicine | DX: M06.9 Rheumatoid arthritis, unspecified (principal); M81.0 Age-related osteoporosis without current pathological fracture; C50.919 Malignant neoplasm of unspecified site of unspecified female breast; M54.9 Dorsalgia, unspecified | CPT/HCPCS: 36415; 80053; 85025; 85651; 86140; 99214 ==